=== PATIENT | male | born 1945 | race Caucasian/White ===

== ENCOUNTER 2017-12-18 12:52 | Emergency (ER) | payer MEDICARE, OTHER ==
[2017-12-18 13:09] VITALS: RESP 18
[2017-12-18] MEDS ORDERED: SODIUM CHLORIDE 0.9% 500 ML IV STA (14:32)
[2017-12-18] MEDS ORDERED: SODIUM CHLORIDE 0.9% 1,000 ML IV STA (14:32)
[2017-12-18] MEDS ORDERED: PANTOPRAZOLE 40 MG/10 ML VIAL IVP STA (14:32)
--- NOTE | 2017-12-18 14:34 | ED ---
General Adult HPI - General Chief complaint: GI Bleed Stated complaint: Bleeding Time Seen by Provider: 12/18/17 14:32 Source: patient, RN notes reviewed, old records reviewed Mode of arrival: ambulatory Limitations: no limitations - History of Present Illness Initial comments: This is a 9-year-old male the ER for evaluation today is presenting for evaluation regarding GI bleed. Patient has black tarry stools. No history of significant GI bleed no blood thinners no travel history no sick contacts no lightheadedness no dizziness no weakness no nausea no vomiting no vomiting of blood. - Related Data Home Medications Medication Instructions Recorded Confirmed Aspirin EC [Ecotrin Low Dose] 162 mg PO DAILY 12/18/17 12/18/17 Atenolol [Tenormin] 25 mg PO DAILY 12/18/17 12/18/17 Atorvastatin [Lipitor] 20 mg PO HS 12/18/17 12/18/17 Omeprazole 20 mg PO DAILY 12/18/17 12/18/17 Tamsulosin [Flomax] 0.4 mg PO DAILY 12/18/17 12/18/17 Allergies Allergy/AdvReac Type Severity Reaction Status Date / Time No Known Allergies Allergy Verified 12/18/17 15:13 Review of Systems ROS Statement: Those systems with pertinent positive or pertinent negative responses have been documented in the HPI. ROS Other: All systems not noted in ROS Statement are negative. Past Medical History Past Medical History: GERD/Reflux, Hyperlipidemia, Hypertension History of Any Multi-Drug Resistant Organisms: None Reported Past Surgical History: Heart Catheterization With Stent, Orthopedic Surgery Past Psychological History: No Psychological Hx Reported Smoking Status: Former smoker Past Alcohol Use History: Occasional Past Drug Use History: Marijuana General Exam Limitations: no limitations General appearance: alert, in no apparent distress Head exam: Present: atraumatic, normocephalic, normal inspection Eye exam: Present: normal appearance, PERRL, EOMI. Absent: scleral icterus, conjunctival injection, periorbital swelling ENT exam: Present: normal exam, mucous membranes moist Neck exam: Present: normal inspection. Absent: tenderness, meningismus, lymphadenopathy Respiratory exam: Present: normal lung sounds bilaterally. Absent: respiratory distress, wheezes, rales, rhonchi, stridor Cardiovascular Exam: Present: regular rate, normal rhythm, normal heart sounds. Absent: systolic murmur, diastolic murmur, rubs, gallop, clicks GI/Abdominal exam: Present: soft, normal bowel sounds. Absent: distended, tenderness, guarding, rebound, rigid Extremities exam: Present: normal inspection, full ROM, normal capillary refill. Absent: tenderness, pedal edema, joint swelling, calf tenderness Back exam: Present: normal inspection Neurological exam: Present: alert, oriented X3, CN II-XII intact Psychiatric exam: Present: normal affect, normal mood Skin exam: Present: warm, dry, intact, normal color. Absent: rash Course Vital Signs 12/18/17 13:06 Temperature 98.3 F Pulse Rate 96 Respiratory 18 Rate Blood Pressure 111/83 O2 Sat by Pulse 98 Oximetry - Reevaluation(s) Reevaluation #1: 12/18/17 15:20 Patient admits recent lab values done with normal hemoglobin being found. Patient has history of multiple colonoscopies Medical Decision Making - Medical Decision Making 72 male the ER for evaluation of black tarry stools multiple black tarry stools earlier today. Patient has no bowel pain no prior strokes currently. Patient continue follow-up as an outpatient. Feeling fine no lightheadedness dizziness no weakness, blood pressure and pulse are normal - Lab Data Result diagrams: 12/18/17 14:55 Lab Results 12/18/17 12/18/17 Range/Units 14:55 14:55 WBC 9.1 (3.8-10.6) k/uL RBC 4.36 (4.30-5.90) m/uL Hgb 14.2 (13.0-17.5) gm/dL Hct 41.3 (39.0-53.0) % MCV 94.8 (80.0-100.0) fL MCH 32.6 (25.0-35.0) pg MCHC 34.4 (31.0-37.0) g/dL RDW 12.6 (11.5-15.5) % Plt Count 320 (150-450) k/uL Neutrophils % 67 % Lymphocytes % 20 % Monocytes % 10 % Eosinophils % 1 % Basophils % 1 % Neutrophils # 6.0 (1.3-7.7) k/uL Lymphocytes # 1.8 (1.0-4.8) k/uL Monocytes # 0.9 (0-1.0) k/uL Eosinophils # 0.1 (0-0.7) k/uL Basophils # 0.1 (0-0.2) k/uL Stool Occult Blood Negative (Negative) Disposition Clinical Impression: Gastrointestinal hemorrhage, Melena Disposition: HOME SELF-CARE Condition: Good Instructions: Gastrointestinal Bleeding (ED) Is patient prescribed a controlled substance at d/c from ED?: No Referrals: Lilo Hu DO [Primary Care Provider] - 1-2 days
[2017-12-18 15:17] LABS: Basophils # (A) 0.1 k/uL (0-0.2); Basophils % (A) 1 %; Eosinophils # (A) 0.1 k/uL (0-0.7); Eosinophils % (A) 1 %; HCT 41.3 % (39.0-53.0); HGB 14.2 gm/dL (13.0-17.5); Lymphocytes # (A) 1.8 k/uL (1.0-4.8); Lymphocytes % (A) 20 %; MCH 32.6 pg (25.0-35.0); MCHC 34.4 g/dL (31.0-37.0); MCV 94.8 fL (80.0-100.0); Mean Platelet Volume 6.2; Monocytes # (A) 0.9 k/uL (0-1.0); Monocytes % (A) 10 %; Neutrophils % (A) 67 %; Platelet Count 320 k/uL (150-450); RBC 4.36 m/uL (4.30-5.90); RDW 12.6 % (11.5-15.5); WBC 9.1 k/uL (3.8-10.6)
[2017-12-18 15:33] LABS: Calcium 9.3 mg/dL (8.4-10.2); Magnesium 1.5 mg/dL (1.6-2.3); Potassium 3.7 mmol/L (3.5-5.1); Total Bilirubin 0.6 mg/dL (0.2-1.3); Total Protein 6.7 g/dL (6.3-8.2)
[2017-12-18 15:35] LABS: INR 1.2 (<1.2); Partial Thromboplastin Time 23.5 sec (22.0-30.0); Prothrombin Time 11.5 sec (9.0-12.0)
[2017-12-18 15:38] LABS: Creatine Kinase 55 U/L (55-170)
[2017-12-18 15:49] LABS: Creatine Kinase MB 0.5 ng/mL (0.0-2.4); Troponin I <0.012 ng/mL (0.000-0.034)
[2017-12-18 15:50] VITALS: BP 119/72; PULSE 82; TEMP 98
== END 2017-12-18 15:54 | disposition home or self-care (01) ==
LOC: EC 12:52
DX: K92.1 Melena (principal); E78.5 Hyperlipidemia, unspecified; I10 Essential (primary) hypertension; K21.9 Gastro-esophageal reflux disease without esophagitis; Z87.891 Personal history of nicotine dependence; Z79.82 Long term (current) use of aspirin; Z79.899 Other long term (current) drug therapy
CPT/HCPCS: 36415; 86900; 86901; 80053; 82550; 82553; 83735; 84484; 85025; 85610; 85730; 86850; 82272; 99285; 96374; C9113

== ENCOUNTER 2018-01-04 09:45 | Day surgery (SDC) | payer MEDICARE, OTHER ==
[2018-01-02 16:08] VITALS: BMI 26.6
[~2018-01-04 09:45] MED LIST: LACTATED RINGERS 1,000 ML IV SCH
[2018-01-04 10:44] VITALS: RESP 16; TEMP 97.6
[2018-01-04] MEDS ORDERED: LIDOCAINE 1% 20 ML VIAL (10MG/ML) FOR IV START INTRADERMA ONE (10:52)
[2018-01-04] MEDS ORDERED: PROPOFOL 10 MG/ML 20 ML VIAL IV ONE (11:33)
--- NOTE | 2018-01-04 11:36 | P.GSHP ---
History of Present Illness H&P Date: 01/04/18 Chief Complaint: GI bleed, GERD This is a 72-year-old male referred from Dr. Lilo garcia. Patient rents today for EGD colonoscopy. He's had issues with GI bleeding GERD. Past Medical History Past Medical History: GERD/Reflux, Hearing Disorder / Deafness, Hyperlipidemia, Hypertension, Osteoarthritis (OA) Additional Past Medical History / Comment(s): Hard of hearing. Recent rectal bleeding, black stools, white stools. History of Any Multi-Drug Resistant Organisms: None Reported Past Surgical History: Heart Catheterization With Stent, Orthopedic Surgery Past Anesthesia/Blood Transfusion Reactions: No Reported Reaction Date of Last Stent Placement:: 2007 Past Psychological History: No Psychological Hx Reported Smoking Status: Former smoker Past Alcohol Use History: Occasional Additional Past Alcohol Use History / Comment(s): Quit smoking 15 yrs ago, smoked 40-45yrs, 1 PPD. Past Drug Use History: Marijuana Additional Drug Use History / Comment(s): Uses marajuana on the weekends. - Past Family History Mother Family Medical History: No Reported History Medications and Allergies Home Medications Medication Instructions Recorded Confirmed Type Aspirin EC [Ecotrin Low Dose] 162 mg PO DAILY 12/18/17 01/02/18 History Atenolol [Tenormin] 25 mg PO QAM 12/18/17 01/04/18 History Atorvastatin [Lipitor] 20 mg PO Q48H 12/18/17 01/04/18 History Omeprazole 20 mg PO DAILY 12/18/17 01/04/18 History Tamsulosin [Flomax] 0.4 mg PO DAILY 12/18/17 01/04/18 History Allergies Allergy/AdvReac Type Severity Reaction Status Date / Time No Known Allergies Allergy Verified 01/04/18 10:40 Surgical - Exam Vital Signs Temp Pulse Resp BP Pulse Ox 97.6 F 80 16 139/91 94 L 01/04/18 10:42 01/04/18 10:42 01/04/18 10:42 01/04/18 10:42 01/04/18 10:42 - General well developed, no distress - Eyes PERRL - ENT normal pinna - Neck no masses - Respiratory normal expansion - Cardiovascular Rhythm: regular - Abdomen Abdomen: soft, non tender Assessment and Plan Assessment: GERD, GI bleed. We'll perform EGD and colonoscopy.
[2018-01-04 12:56] VITALS: BP 128/78; PULSE 58
--- NOTE | 2018-01-04 14:56 | P.OP ---
Date of Procedure: 01/04/18 Preoperative Diagnosis: GERD GI bleed Postoperative Diagnosis: Antral gastritis No evidence of hiatal hernia Esophageal biopsy pathology pending Diverticulosis Hemorrhoids Procedure(s) Performed: EGD Colonoscopy Anesthesia: MAC Surgeon: Christopher Estrada Pathology: other (Antrum, esophagus) Condition: stable Disposition: PACU Description of Procedure: The patient's placed on the endoscopy table in the lateral position. He received IV sedation. Digital rectal exam was performed, this revealed international hemorrhoids. Flexible colonoscope was then placed patient anus and passed throughout the entire colon. The ileocecal valve visualized. The cecum, ascending and transverse colon appeared normal. In the descending; there is mild diverticulosis. The scope was then brought back the rectum and this appeared normal. Scope was withdrawn for patient. Next the gastroscope placed oropharynx and passed in the esophagus and stomach. Scope was then placed through the pylorus. The first and second portion of the duodenum appeared normal. Scope was then brought back the antrum this appeared mildly inflamed. A biopsies performed. Scope was then retroflexed and the remainder some appeared normal. There was no significant hiatal hernia. The distal esophagus was minimal inflamed a biopsies performed. The proximal esophagus appeared normal. Scope was withdrawn for patient.
--- NOTE | 2018-01-09 05:21 | CDI ---
Date: 01/09/18 CDS/Director Counseling Bureau Name: Deborah Martinez Phone: If any questions, call Cynthia Walter Life Specialist at [phone] Patient Name: Jr Christianson Admit Date: 01/04/18 Discharge Date: 01/04/18 ATTENTION: The [facility] Coding Staff appreciate your assistance in clarifying documentation. Please respond to the clarification below the line at the bottom and electronically sign. The [facility] Coding staff will review the response and follow-up if needed. Please note: Queries are made part of the Legal Health Record. If you have any questions, please contact the Life Specialist. Dear Dr. Estrada, Please provide clarification regarding procedure(s) performed. Please clarify if a recal biopsy was performed or a polyp was removed and how it was removed. Operative report states that the rectum was normal and there is no other mention of a rectal polyp or biopsy of rectum. The pathology report has a diagnosis of hyperplastic polyp of the rectum. Also, need clarification for GI Bleed. Please clarify if the GI bleed was caused by any of the findings for this colonoscopy. Thank you for your kind consideration. Operative note addendum Cause of GI bleed could not be determined on colonoscopy MTDD
== END 2018-01-04 13:16 | disposition home or self-care (01) ==
LOC: ORWHC2ENDO 09:45
PROVIDERS: ATTEND Surgery
DX: K92.2 Gastrointestinal hemorrhage, unspecified (principal); K21.0 Gastro-esophageal reflux disease with esophagitis; K62.1 Rectal polyp; K29.60 Other gastritis without bleeding; K57.30 Diverticulosis of large intestine without perforation or abscess without bleeding; K64.8 Other hemorrhoids; I25.10 Atherosclerotic heart disease of native coronary artery without angina pectoris; I10 Essential (primary) hypertension; E78.5 Hyperlipidemia, unspecified; M19.90 Unspecified osteoarthritis, unspecified site; Z87.891 Personal history of nicotine dependence; Z79.82 Long term (current) use of aspirin; Z79.899 Other long term (current) drug therapy; Z95.5 Presence of coronary angioplasty implant and graft
CPT/HCPCS: 88305; 45380; 43239; J2704

== ENCOUNTER 2018-02-15 12:06 | Emergency (ER) | payer MEDICARE ==
[2018-02-15 12:12] VITALS: RESP 18; TEMP 97.9
[2018-02-15] MEDS ORDERED: SODIUM CHLORIDE 0.9% 1,000 ML IV STA (12:29)
--- NOTE | 2018-02-15 12:47 | ED ---
Neuro HPI - General Chief Complaint: Neuro Symptoms/Deficit Stated Complaint: Numbness in Hands, Confused Time Seen by Provider: 02/15/18 12:26 Source: patient, RN notes reviewed, old records reviewed Mode of arrival: wheelchair Limitations: no limitations - History of Present Illness Is the patient presenting with stroke symptoms?: Yes Last Known Well Date: 02/15/18 Last Known Well Time: 11:00 -: hour(s) (2) Initial Comments: This is a 72-year-old male the ER with known history of heart disease CAD stent coming in with right arm weakness numbness tingling and right hand weakness. This occurred after his normal walk this morning and while he was mowing the lawn. Patient was going to the emergency room. Upon arrival to emergency room all symptoms have resolved. Patient does take a baby aspirin every day Location: right arm History of same: Yes (Numbness and tingling right arm with complicating history of carpal tunnel) Place: home Severity: mild Quality: weak (Right hand) Improves With: time On Anticoagulants: Yes Context: gradual onset Associated Symptoms: denies other symptoms Treatments Prior to Arrival: Aspirin - Related Data Home Medications: Home Medications Medication Instructions Recorded Confirmed Aspirin EC [Ecotrin Low Dose] 162 mg PO DAILY 12/18/17 02/15/18 Atenolol [Tenormin] 25 mg PO QAM 12/18/17 02/15/18 Atorvastatin [Lipitor] 20 mg PO MOWEFR 12/18/17 02/15/18 Omeprazole 20 mg PO DAILY 12/18/17 02/15/18 Tamsulosin [Flomax] 0.4 mg PO DAILY 12/18/17 02/15/18 Allergies/Adverse Reactions: Allergies Allergy/AdvReac Type Severity Reaction Status Date / Time No Known Allergies Allergy Verified 02/15/18 12:36 Review of Systems ROS Statement: Those systems with pertinent positive or pertinent negative responses have been documented in the HPI. ROS Other: All systems not noted in ROS Statement are negative. General Exam - General Exam Comments Initial Comments: NIH of 0, no neurological deficits found Limitations: no limitations General appearance: alert, in no apparent distress Head exam: Present: atraumatic, normocephalic, normal inspection Eye exam: Present: normal appearance, PERRL, EOMI. Absent: scleral icterus, conjunctival injection, periorbital swelling ENT exam: Present: normal exam, mucous membranes moist Neck exam: Present: normal inspection. Absent: tenderness, meningismus, lymphadenopathy Respiratory exam: Present: normal lung sounds bilaterally. Absent: respiratory distress, wheezes, rales, rhonchi, stridor Cardiovascular Exam: Present: regular rate, normal rhythm, normal heart sounds. Absent: systolic murmur, diastolic murmur, rubs, gallop, clicks GI/Abdominal exam: Present: soft, normal bowel sounds. Absent: distended, tenderness, guarding, rebound, rigid Extremities exam: Present: normal inspection, full ROM, normal capillary refill. Absent: tenderness, pedal edema, joint swelling, calf tenderness Back exam: Present: normal inspection Neurological exam: Present: alert, oriented X3, CN II-XII intact Psychiatric exam: Present: normal affect, normal mood Skin exam: Present: warm, dry, intact, normal color. Absent: rash Stroke MDM - Lab Data Result diagrams: 02/15/18 12:30 02/15/18 12:30 Lab Results 02/15/18 02/15/18 02/15/18 Range/Units 12:23 12:30 12:30 WBC 7.2 (3.8-10.6) k/uL RBC 4.33 (4.30-5.90) m/uL Hgb 14.0 (13.0-17.5) gm/dL Hct 41.4 (39.0-53.0) % MCV 95.8 (80.0-100.0) fL MCH 32.4 (25.0-35.0) pg MCHC 33.8 (31.0-37.0) g/dL RDW 12.5 (11.5-15.5) % Plt Count 259 (150-450) k/uL Neutrophils % 65 % Lymphocytes % 24 % Monocytes % 7 % Eosinophils % 2 % Basophils % 1 % Neutrophils # 4.6 (1.3-7.7) k/uL Lymphocytes # 1.7 (1.0-4.8) k/uL Monocytes # 0.5 (0-1.0) k/uL Eosinophils # 0.2 (0-0.7) k/uL Basophils # 0.1 (0-0.2) k/uL PT (9.0-12.0) sec INR (<1.2) APTT (22.0-30.0) sec Sodium (137-145) mmol/L Potassium (3.5-5.1) mmol/L Chloride (98-107) mmol/L Carbon Dioxide (22-30) mmol/L Anion Gap mmol/L BUN (9-20) mg/dL Creatinine (0.66-1.25) mg/dL Est GFR (CKD-EPI)AfAm (>60 ml/min/1.73 sqM) Est GFR (CKD-EPI)NonAf (>60 ml/min/1.73 sqM) Glucose (74-99) mg/dL POC Glucose (mg/dL) 107 H (75-99) mg/dL POC Glu Manufacturing Support Engineer ID Arun Stoner Calcium (8.4-10.2) mg/dL Total Bilirubin (0.2-1.3) mg/dL AST (17-59) U/L ALT (21-72) U/L Alkaline Phosphatase (38-126) U/L Total Creatine Kinase 65 (55-170) U/L CK-MB (CK-2) 0.7 (0.0-2.4) ng/mL CK-MB (CK-2) Rel Index 1.1 Troponin I <0.012 (0.000-0.034) ng/mL Total Protein (6.3-8.2) g/dL Albumin (3.5-5.0) g/dL 02/15/18 02/15/18 Range/Units 12:30 12:30 WBC (3.8-10.6) k/uL RBC (4.30-5.90) m/uL Hgb (13.0-17.5) gm/dL Hct (39.0-53.0) % MCV (80.0-100.0) fL MCH (25.0-35.0) pg MCHC (31.0-37.0) g/dL RDW (11.5-15.5) % Plt Count (150-450) k/uL Neutrophils % % Lymphocytes % % Monocytes % % Eosinophils % % Basophils % % Neutrophils # (1.3-7.7) k/uL Lymphocytes # (1.0-4.8) k/uL Monocytes # (0-1.0) k/uL Eosinophils # (0-0.7) k/uL Basophils # (0-0.2) k/uL PT 11.5 (9.0-12.0) sec INR 1.2 H (<1.2) APTT 24.1 (22.0-30.0) sec Sodium 139 (137-145) mmol/L Potassium 4.9 (3.5-5.1) mmol/L Chloride 109 H (98-107) mmol/L Carbon Dioxide 23 (22-30) mmol/L Anion Gap 7 mmol/L BUN 12 (9-20) mg/dL Creatinine 0.99 (0.66-1.25) mg/dL Est GFR (CKD-EPI)AfAm 89 (>60 ml/min/1.73 sqM) Est GFR (CKD-EPI)NonAf 77 (>60 ml/min/1.73 sqM) Glucose 110 H (74-99) mg/dL POC Glucose (mg/dL) (75-99) mg/dL POC Glu Manufacturing Support Engineer ID Calcium 9.1 (8.4-10.2) mg/dL Total Bilirubin 0.9 (0.2-1.3) mg/dL AST 34 (17-59) U/L ALT 30 (21-72) U/L Alkaline Phosphatase 56 (38-126) U/L Total Creatine Kinase (55-170) U/L CK-MB (CK-2) (0.0-2.4) ng/mL CK-MB (CK-2) Rel Index Troponin I (0.000-0.034) ng/mL Total Protein 6.7 (6.3-8.2) g/dL Albumin 3.8 (3.5-5.0) g/dL - NIH Stroke Scale 1a. Level of Consciousness: (0) alert 1b. LOC Questions: (0) answers correctly 1c. LOC Commands: (0) performs tasks correctly 2. Best Gaze: (0) normal 3. Visual: (0) no visual loss 4. Facial Palsy: (0) normal symmetrical movement 5a. Motor Arm Left: (0) no drift 5b. Motor Arm Right: (0) no drift 6a. Motor Leg Left: (0) no drift 6b. Motor Leg Right: (0) no drift 7. Limb Ataxia: (0) absent 8. Sensory: (0) normal 9. Best Language: (0) no aphasia 10. Dysarthria: (0) normal 11. Extinction/Inattention: (0) no abnormality - Thrombolytic Inclusion/Exclusion Thrombolytic Contraindications: Rapidly Improving s/s - Medical Decision Making 72 male the ER with right hand weakness numbness and tingling. Symptoms are now resolved. Remain resolved throughout ER stay, patient increased full dose aspirin, will follow-up with neurology - Radiology Data Radiology results: report reviewed (CT brain negative for acute disease, CTA head and neck negative for acute disease), image reviewed - EKG Data -: EKG Interpreted by Me (EKG shows sinus bradycardia rate of 59, MI 176, QRS 02 , QTc 43) EKG shows normal: sinus rhythm Rate: bradycardia Past Medical History Past Medical History: GERD/Reflux, Hearing Disorder / Deafness, Hyperlipidemia, Hypertension, Osteoarthritis (OA) Additional Past Medical History / Comment(s): Hard of hearing. Recent rectal bleeding, black stools, white stools. History of Any Multi-Drug Resistant Organisms: None Reported Past Surgical History: Heart Catheterization With Stent, Orthopedic Surgery Past Anesthesia/Blood Transfusion Reactions: No Reported Reaction Date of Last Stent Placement:: 2007 Past Psychological History: No Psychological Hx Reported Smoking Status: Former smoker Past Alcohol Use History: Occasional Past Drug Use History: Marijuana - Past Family History Mother Family Medical History: No Reported History Course Vital Signs 02/15/18 02/15/18 02/15/18 12:09 12:30 12:40 Temperature 97.9 F Pulse Rate 62 58 L Respiratory 18 Rate Blood Pressure 146/89 160/97 142/89 O2 Sat by Pulse 98 98 Oximetry 02/15/18 13:10 Temperature Pulse Rate 57 L Respiratory Rate Blood Pressure 152/108 O2 Sat by Pulse 98 Oximetry - Reevaluation(s) Reevaluation #1: 02/15/18 13:38 Medical history as reviewed Reevaluation #2: 02/15/18 13:38 Patient with reevaluation, no current neurological deficit. Reevaluation #3: 02/15/18 13:39 With family at length, patient will go to high dose aspirin and be followed up with neurology Disposition Clinical Impression: Transient cerebral ischemia Disposition: HOME SELF-CARE Condition: Good Instructions: Transient Ischemic Attack (ED) Is patient prescribed a controlled substance at d/c from ED?: No Referrals: Lilo Hu DO [Primary Care Provider] - 1-2 days Porfirio Bojorquez MD [STAFF PHYSICIAN] - 1-2 days
[2018-02-15 12:51] LABS: Basophils # (A) 0.1 k/uL (0-0.2); Basophils % (A) 1 %; Eosinophils # (A) 0.2 k/uL (0-0.7); Eosinophils % (A) 2 %; HCT 41.4 % (39.0-53.0); Lymphocytes # (A) 1.7 k/uL (1.0-4.8); Lymphocytes % (A) 24 %; MCH 32.4 pg (25.0-35.0); MCHC 33.8 g/dL (31.0-37.0); MCV 95.8 fL (80.0-100.0); Mean Platelet Volume 6.9; Monocytes # (A) 0.5 k/uL (0-1.0); Monocytes % (A) 7 %; Neutrophils # (A) 4.6 k/uL (1.3-7.7); Neutrophils % (A) 65 %; Platelet Count 259 k/uL (150-450); RBC 4.33 m/uL (4.30-5.90); RDW 12.5 % (11.5-15.5); WBC 7.2 k/uL (3.8-10.6)
[2018-02-15 12:55] LABS: Glucose,Whole Blood 107 mg/dL (75-99)
--- NOTE | 2018-02-15 13:03 | XR ---
EXAMINATION TYPE: XR chest 2V DATE OF EXAM: 02/15/2018 COMPARISON: 10/25/2009 HISTORY: Altered mental status and weakness TECHNIQUE: Frontal and lateral views of the chest are obtained. FINDINGS: There is no focal air space opacity, pleural effusion, or pneumothorax seen. The cardiac silhouette size is enlarged. The osseous structures are intact. Mild degenerative changes of the th oracic spine and acromioclavicular arthropathy are seen. IMPRESSION: No acute cardiopulmonary process.
[2018-02-15 13:08] LABS: Albumin 3.8 g/dL (3.5-5.0); Calcium 9.1 mg/dL (8.4-10.2); Total Bilirubin 0.9 mg/dL (0.2-1.3); Total Protein 6.7 g/dL (6.3-8.2)
--- NOTE | 2018-02-15 13:08 | CT ---
EXAMINATION TYPE: CT brain wo con for TPA DATE OF EXAM: 02/15/2018 COMPARISON: 10/25/2009 HISTORY: Rt hand numbness CT DLP: [address] of the brain was performed. The ventricles, basal cisterns and sulci overlying the cerebral convexities demonstrate mild enlargem ent. There is no evidence for intracranial hemorrhage or sulcal effacement. There is decreased attenuation about the periventricular white matter and deep white matter of both c erebral hemispheres, compatible with chronic small vessel ischemia. Differential diagnosis does inclu de demyelination. No mass effects are seen.No midline shift. Osseous calvarium is intact. If symptoms persist consider MRI. IMPRESSION: 1. Age related atrophic and chronic small vessel ischemic change without acute intracranial process s een at this time.
[2018-02-15 13:13] LABS: Creatine Kinase 65 U/L (55-170)
[2018-02-15 13:20] LABS: INR 1.2 (<1.2); Partial Thromboplastin Time 24.1 sec (22.0-30.0); Potassium 4.9 mmol/L (3.5-5.1); Prothrombin Time 11.5 sec (9.0-12.0)
[2018-02-15 13:26] LABS: Creatine Kinase MB 0.7 ng/mL (0.0-2.4); Troponin I <0.012 ng/mL (0.000-0.034)
--- NOTE | 2018-02-15 13:41 | CT ---
EXAMINATION TYPE: CT angio head neck DATE OF EXAM: 02/15/2018 COMPARISON: None HISTORY: Rt hand numbness CT DLP: 436.2 mGycm CONTRAST: Performed with IV Contrast, patient injected with 65 mL of Isovue 370. Combination Contrast CTA cervical carotids and [place] CTA cervical carotids with 3-D recons truction Contrast CTA of the cervical carotids was performed 3-D reconstruction imaging obtained at a separate workstation. Right carotid system: Mild plaque is seen of the right common carotid artery. There is mild plaque a lso noted at the carotid bulb and proximal ICA. No significant diameter reduction. ECA is patent. Right vertebral artery appears unremarkable. Left carotid system: Mild plaque is seen of the left common carotid artery. There is mild plaque als o noted at the carotid bulb and proximal ICA. No significant diameter reduction. ECA is patent. Lef t vertebral artery appears unremarkable. IMPRESSION: 1. No significant diameter reduction to account for the patient's symptoms. CTA [place] with 3-D reconstruction Contrast CTA of the [place] was performed 3-D reconstruction imaging obtained at a separate workstation. Vertebrobasilar system as well as intracranial portions of the internal carotid arteries and their ma [place] tributaries are patent. I do not see evidence for sizable aneurysm or vascular malformation. Pl ease note MRI provides greater sensitivity and specificity. Visualized brain appears grossly unremar kable. IMPRESSION: 1. No siginificant abnormality.
[2018-02-15 14:26] VITALS: BP 147/90; PULSE 54
== END 2018-02-15 14:52 | disposition home or self-care (01) ==
LOC: EC 12:06
DX: G45.9 Transient cerebral ischemic attack, unspecified (principal); R29.700 NIHSS score 0; R00.1 Bradycardia, unspecified; E78.5 Hyperlipidemia, unspecified; I10 Essential (primary) hypertension; I25.10 Atherosclerotic heart disease of native coronary artery without angina pectoris; K21.9 Gastro-esophageal reflux disease without esophagitis; H91.90 Unspecified hearing loss, unspecified ear; M19.90 Unspecified osteoarthritis, unspecified site; Z87.891 Personal history of nicotine dependence; Z79.82 Long term (current) use of aspirin; Z79.899 Other long term (current) drug therapy; Z95.5 Presence of coronary angioplasty implant and graft
CPT/HCPCS: 36415; 93005; 80053; 82550; 82553; 84484; 85025; 85610; 85730; 71046; 70496; 70450; 70498; 99285; 96360; 96361; Q9967

== ENCOUNTER → 2018-02-28 | Outpatient (CLI) | payer MEDICARE | LOC: RADECHMAIN 11:07 | PROVIDERS: ATTEND Nurse Practitioner Family | DX: G45.9 Transient cerebral ischemic attack, unspecified (principal) | CPT/HCPCS: 93270; 93271 ==

== ENCOUNTER 2018-03-15 21:10 | Inpatient (IN) | payer MEDICARE ==
[2018-03-15] MEDS ORDERED: SODIUM CHLORIDE 0.9% 1,000 ML IV STA (21:15)
[2018-03-15] MEDS ORDERED: SODIUM CHLORIDE 0.9% 500 ML 500 ML IV STA (21:15)
[2018-03-15 21:23] LABS: Glucose,Whole Blood 134 mg/dL (75-99)
--- NOTE | 2018-03-15 21:25 | ED ---
Overdose HPI - General Chief Complaint: Overdose Stated Complaint: Unresponsive Time Seen by Provider: 03/15/18 21:15 Source: patient, EMS, RN notes reviewed, old records reviewed Mode of arrival: EMS Limitations: no limitations - History of Present Illness Initial Comments: This is a 72-year-old male to the ER for evaluation, today he presents for evaluation regards to altered mental status. Family called EMS for patient to be unresponsive. He has no history of drinking at night. But he family denies him taking any other medications or intentional overdose. Family states he does have history of recent TIA with similar symptoms, but he does have history of taking too much of his medication as well. Patient himself is currently unresponsive he did mildly responsive to Narcan per EMS, history obtained from patient's chart EMS and family at bedside MD Complaint: intentional overdose, accidental overdose -: unknown Intent: unknown How Overdose Was Discovered: called 911 (Family called) Context: Intentional Overdose: drug/ETOH problems Context: Accidental Overdose: other (Unknown) Treatments Prior to Arrival: narcan, IV fluids - Related Data Home Medications Medication Instructions Recorded Confirmed Aspirin EC [Ecotrin Low Dose] 162 mg PO DAILY 12/18/17 02/15/18 Atenolol [Tenormin] 25 mg PO QAM 12/18/17 02/15/18 Atorvastatin [Lipitor] 20 mg PO MOWEFR 12/18/17 02/15/18 Omeprazole 20 mg PO DAILY 12/18/17 02/15/18 Tamsulosin [Flomax] 0.4 mg PO DAILY 12/18/17 02/15/18 Allergies Allergy/AdvReac Type Severity Reaction Status Date / Time No Known Allergies Allergy Verified 02/15/18 12:36 Review of Systems ROS Statement: Those systems with pertinent positive or pertinent negative responses have been documented in the HPI. ROS Other: All systems not noted in ROS Statement are negative. Past Medical History Past Medical History: GERD/Reflux, Hearing Disorder / Deafness, Hyperlipidemia, Hypertension, Osteoarthritis (OA) Additional Past Medical History / Comment(s): Hard of hearing. Recent rectal bleeding, black stools, white stools. History of Any Multi-Drug Resistant Organisms: None Reported Past Surgical History: Heart Catheterization With Stent, Orthopedic Surgery Past Anesthesia/Blood Transfusion Reactions: No Reported Reaction Date of Last Stent Placement:: 2007 Past Psychological History: No Psychological Hx Reported Smoking Status: Former smoker Past Alcohol Use History: Occasional Past Drug Use History: Marijuana - Past Family History Mother Family Medical History: No Reported History General Exam Limitations: altered mental status General appearance: alert, in no apparent distress Head exam: Present: atraumatic, normocephalic, normal inspection Eye exam: Present: normal appearance, PERRL, EOMI. Absent: scleral icterus, conjunctival injection, periorbital swelling ENT exam: Present: normal exam, mucous membranes moist Neck exam: Present: normal inspection. Absent: tenderness, meningismus, lymphadenopathy Respiratory exam: Present: normal lung sounds bilaterally. Absent: respiratory distress, wheezes, rales, rhonchi, stridor Cardiovascular Exam: Present: regular rate, normal rhythm, normal heart sounds. Absent: systolic murmur, diastolic murmur, rubs, gallop, clicks GI/Abdominal exam: Present: soft, normal bowel sounds. Absent: distended, tenderness, guarding, rebound, rigid Extremities exam: Present: normal inspection, full ROM, normal capillary refill. Absent: tenderness, pedal edema, joint swelling, calf tenderness Back exam: Present: normal inspection Neurological exam: Present: alert, oriented X3, CN II-XII intact Psychiatric exam: Present: normal affect, normal mood Skin exam: Present: warm, dry, intact, normal color. Absent: rash Course Vital Signs 03/15/18 21:15 Pulse Rate 70 Respiratory 19 Rate Blood Pressure 117/79 O2 Sat by Pulse 98 Oximetry - Reevaluation(s) Reevaluation #1: 03/15/18 22:41 Medical records reviewed Reevaluation #2: 03/15/18 22:41 Patient has mild response to Narcan, response to time, coming around but still having difficulty with answering questions appropriately Medical Decision Making - Medical Decision Making 72 male the ER for evaluation presents today for evaluation of unresponsiveness , patient is coming around mildly, now with full improvement back to baseline, no family at bedside to tell if there is completely return to baseline otherwise patient has. Patient's positive alcohol ingestion, CT is negative we' ll admit for further neurological assessment - Lab Data Result diagrams: 03/15/18 21:37 03/15/18 21:37 Lab Results 03/15/18 03/15/18 03/15/18 Range/Units 21:21 21:37 21:37 WBC 10.6 (3.8-10.6) k/uL RBC 4.55 (4.30-5.90) m/uL Hgb 14.7 (13.0-17.5) gm/dL Hct 43.8 (39.0-53.0) % MCV 96.2 (80.0-100.0) fL MCH 32.3 (25.0-35.0) pg MCHC 33.6 (31.0-37.0) g/dL RDW 12.7 (11.5-15.5) % Plt Count 255 (150-450) k/uL Neutrophils % 65 % Lymphocytes % 25 % Monocytes % 6 % Eosinophils % 1 % Basophils % 1 % Neutrophils # 6.9 (1.3-7.7) k/uL Lymphocytes # 2.7 (1.0-4.8) k/uL Monocytes # 0.7 (0-1.0) k/uL Eosinophils # 0.1 (0-0.7) k/uL Basophils # 0.1 (0-0.2) k/uL PT (9.0-12.0) sec INR (<1.2) APTT (22.0-30.0) sec Sodium (137-145) mmol/L Potassium (3.5-5.1) mmol/L Chloride (98-107) mmol/L Carbon Dioxide (22-30) mmol/L Anion Gap mmol/L BUN (9-20) mg/dL Creatinine (0.66-1.25) mg/dL Est GFR (CKD-EPI)AfAm (>60 ml/min/1.73 sqM) Est GFR (CKD-EPI)NonAf (>60 ml/min/1.73 sqM) Glucose (74-99) mg/dL POC Glucose (mg/dL) 134 H (75-99) mg/dL POC Glu Retail Merchandiser ID Estevan Be Plasma Lactic Acid Michael (0.7-2.0) mmol/L Calcium (8.4-10.2) mg/dL Phosphorus (2.5-4.5) mg/dL Magnesium (1.6-2.3) mg/dL Total Bilirubin (0.2-1.3) mg/dL AST (17-59) U/L ALT (21-72) U/L Alkaline Phosphatase (38-126) U/L Ammonia (<30) umol/L Total Creatine Kinase 56 (55-170) U/L CK-MB (CK-2) 0.8 (0.0-2.4) ng/mL CK-MB (CK-2) Rel Index 1.4 Troponin I 0.016 (0.000-0.034) ng/mL Total Protein (6.3-8.2) g/dL Albumin (3.5-5.0) g/dL Serum Alcohol mg/dL 03/15/18 03/15/18 03/15/18 Range/Units 21:37 21:37 21:37 WBC (3.8-10.6) k/uL RBC (4.30-5.90) m/uL Hgb (13.0-17.5) gm/dL Hct (39.0-53.0) % MCV (80.0-100.0) fL MCH (25.0-35.0) pg MCHC (31.0-37.0) g/dL RDW (11.5-15.5) % Plt Count (150-450) k/uL Neutrophils % % Lymphocytes % % Monocytes % % Eosinophils % % Basophils % % Neutrophils # (1.3-7.7) k/uL Lymphocytes # (1.0-4.8) k/uL Monocytes # (0-1.0) k/uL Eosinophils # (0-0.7) k/uL Basophils # (0-0.2) k/uL PT 16.2 H (9.0-12.0) sec INR 1.8 H (<1.2) APTT 22.2 (22.0-30.0) sec Sodium 140 (137-145) mmol/L Potassium 4.7 (3.5-5.1) mmol/L Chloride 108 H (98-107) mmol/L Carbon Dioxide 20 L (22-30) mmol/L Anion Gap 12 mmol/L BUN 17 (9-20) mg/dL Creatinine 1.40 H (0.66-1.25) mg/dL Est GFR (CKD-EPI)AfAm 59 (>60 ml/min/1.73 sqM) Est GFR (CKD-EPI)NonAf 51 (>60 ml/min/1.73 sqM) Glucose 151 H (74-99) mg/dL POC Glucose (mg/dL) (75-99) mg/dL POC Glu Retail Merchandiser ID Plasma Lactic Acid Michael 2.9 H* (0.7-2.0) mmol/L Calcium 9.3 (8.4-10.2) mg/dL Phosphorus 5.0 H (2.5-4.5) mg/dL Magnesium 2.3 (1.6-2.3) mg/dL Total Bilirubin 0.5 (0.2-1.3) mg/dL AST 27 (17-59) U/L ALT 30 (21-72) U/L Alkaline Phosphatase 64 (38-126) U/L Ammonia <9 (<30) umol/L Total Creatine Kinase (55-170) U/L CK-MB (CK-2) (0.0-2.4) ng/mL CK-MB (CK-2) Rel Index Troponin I (0.000-0.034) ng/mL Total Protein 6.9 (6.3-8.2) g/dL Albumin 4.0 (3.5-5.0) g/dL Serum Alcohol 117 mg/dL - Radiology Data Radiology results: report reviewed (CT brain is negative for acute diseae, chest x-ray negative fora cute disease), image reviewed Disposition Clinical Impression: Accidental drug ingestion, Poisoning by opiate or related narcotic, Transient cerebral ischemia, Alcohol ingestion Disposition: ADMITTED IP TO THIS [facility] Condition: Fair Is patient prescribed a controlled substance at d/c from ED?: No Referrals: Lilo Hu DO [Primary Care Provider] - 1-2 days
[2018-03-15] MEDS ORDERED: LORazepam 2 MG/ML INJ IV STA (21:40)
[2018-03-15 21:52] LABS: Basophils # (A) 0.1 k/uL (0-0.2); Basophils % (A) 1 %; Eosinophils # (A) 0.1 k/uL (0-0.7); Eosinophils % (A) 1 %; HCT 43.8 % (39.0-53.0); HGB 14.7 gm/dL (13.0-17.5); Lymphocytes # (A) 2.7 k/uL (1.0-4.8); Lymphocytes % (A) 25 %; MCH 32.3 pg (25.0-35.0); MCHC 33.6 g/dL (31.0-37.0); MCV 96.2 fL (80.0-100.0); Mean Platelet Volume 6.8; Monocytes # (A) 0.7 k/uL (0-1.0); Monocytes % (A) 6 %; Neutrophils # (A) 6.9 k/uL (1.3-7.7); Neutrophils % (A) 65 %; Platelet Count 255 k/uL (150-450); RBC 4.55 m/uL (4.30-5.90); RDW 12.7 % (11.5-15.5); WBC 10.6 k/uL (3.8-10.6)
[2018-03-15 22:00] LABS: INR 1.8 (<1.2); Partial Thromboplastin Time 22.2 sec (22.0-30.0); Prothrombin Time 16.2 sec (9.0-12.0)
[2018-03-15 22:20] LABS: ALT 30 U/L (21-72); AST 27 U/L (17-59); Alkaline Phosphatase 64 U/L (38-126); Anion Gap 12 mmol/L; Blood Urea Nitrogen 17 mg/dL (9-20); Calcium 9.3 mg/dL (8.4-10.2); Carbon Dioxide 20 mmol/L (22-30); Chloride 108 mmol/L (98-107); Glucose 151 mg/dL (74-99); Magnesium 2.3 mg/dL (1.6-2.3); Potassium 4.7 mmol/L (3.5-5.1); Sodium 140 mmol/L (137-145); Total Bilirubin 0.5 mg/dL (0.2-1.3); Total Protein 6.9 g/dL (6.3-8.2)
[2018-03-15 22:21] LABS: Ammonia <9 umol/L (<30)
--- NOTE | 2018-03-15 22:27 | CT ---
EXAMINATION TYPE: CT brain wo con DATE OF EXAM: 03/15/2018 COMPARISON: 02/15/2018 HISTORY: Altered mental status. Found unresponsive. CT DLP: 1526.4 mGycm Automated exposure control for dose reduction was used. FINDINGS: Ventricles of normal size. There is hypodensity in the periventricular white matter. There is no mas s effect nor midline shift. There is no sign of intracranial hemorrhage. The calvarium is intact. IMPRESSION: NO ACUTE INTRACRANIAL ABNORMALITY. CEREBRAL ATROPHY AND CHRONIC SMALL VESSEL ISCHEMIA. NO CHANGE COMP ARED TO OLD EXAM.
[2018-03-15 22:30] LABS: Alcohol 117 mg/dL
[2018-03-15 22:31] LABS: Creatine Kinase MB 0.8 ng/mL (0.0-2.4); Lactic Acid, Venous 2.9 mmol/L (0.7-2.0); Troponin I 0.016 ng/mL (0.000-0.034)
[2018-03-15] MEDS ORDERED: ASPIRIN 325 MG TAB PO STA (22:42)
[2018-03-15] MEDS ORDERED: THIAMINE 100 MG/ML 2 ML VIAL IM STA (22:42)
[2018-03-15] MEDS ORDERED: LORazepam 2 MG/ML INJ IV PRN ×3 (22:42)
[2018-03-15 22:47] LABS: Acetaminophen <10.0 ug/mL; Salicylate <1.0 mg/dL
--- NOTE | 2018-03-15 22:49 | XR ---
EXAMINATION TYPE: XR chest 1V portable DATE OF EXAM: 03/15/2018 COMPARISON: 02/15/2018 HISTORY: Right-sided jaw pain TECHNIQUE: Single frontal view of the chest is obtained. FINDINGS: There is no heart failure nor confluent pneumonic infiltrate. Costophrenic angles are prachi r. There are chest leads. IMPRESSION: No active cardiopulmonary disease. Normal heart.
[2018-03-15 22:58] LABS: Appearance,Urine Clear (Clear); Bilirubin,Urine Negative (Negative); Blood,Urine Negative (Negative); Color,Urine Yellow; Glucose,Urine (UA) Negative (Negative); Granular Casts,Urine 10 /lpf (0); Hyaline Casts,Urine 21 /lpf (0-2); Ketones,Urine Negative (Negative); Leukocyte Esterase,Urine Negative (Negative); Mucus,Urine Rare /hpf; Nitrite,Urine Negative (Negative); PH, Urine 5.5 (5.0-8.0); Protein,Urine 1+ (Negative); RBC,Urine <1 /hpf (0-5); Specific Gravity,Urine 1.008 (1.001-1.035); Urobilinogen,Urine <2.0 mg/dL (<2.0); WBC,Urine 2 /hpf (0-5)
[2018-03-15 23:21] LABS: Amphetamine Screen,Urine Not Detected (NotDetected); Barbiturate Screen,Urine Not Detected (NotDetected); Benzodiazepines Screen,Urine Not Detected (NotDetected); Cocaine Screen,Urine Not Detected (NotDetected); Methadone Screen, Urine Not Detected (NotDetected); Opiate Screen,Urine Not Detected (NotDetected); Oxycodone Screen, Urine Not Detected (NotDetected); Phencyclidine Screen,Urine Not Detected (NotDetected); Tricyclic Antidepressant,Urine Not Detected (NotDetected); Urn Cannabinoid Scrn Detected (NotDetected)
[2018-03-16 02:48] LABS: Cholesterol 193 mg/dL (<200); HDL Cholesterol 42 mg/dL (40-60); LDL Cholesterol,Calculated 111 mg/dL (0-99); Triglycerides 202 mg/dL (<150)
[2018-03-16 08:07] VITALS: BMI 24.3
[2018-03-16] MEDS: SODIUM CHLORIDE 0.9% 1,000 ML IV SCH ×3 (09:06→16:24)
[2018-03-16] MEDS: ENOXAPARIN 40 MG/0.4 ML SYRINGE SQ SCH (09:09)
--- NOTE | 2018-03-16 13:16 | P.CNNES ---
History of Present Illness Consult date: 03/16/18 Requesting physician: Tracy Navarrete Reason for Consult: Altered mental status History of Present Illness: Patient is a pleasant 72-year-old male who is being evaluated by the neurology service on 03/16/2018 per the request of Dr. Navarrete for altered mental status. Patient states he woke up in the morning and seemed to be fine. He states he cleaned out his garage and then went to his local establishment to have a few beers with his friends. States he came home and doesn't recall anything following. He states his girlfriend found him slumped over the bar in their basement and was unresponsive. She called 911 patient was brought to [facility] for further evaluation. EMS administered Narcan en route with little response. Patient does have history of taking too much medication in the past. Patient does have history of alcohol abuse. Patient does have history of TIA in January 2018 and is on aspirin in the home setting. No obvious lateralizing weakness or seizure-like activity noted on admission. Computed tomography scan of the brain was done on admission which showed no acute intracranial abnormality. CT did show cerebral atrophy and chronic small vessel ischemia. Chest x-ray showed no active cardiopulmonary disease. Vital signs on admission were pulse 70, respiratory rate 19, blood pressure 117/79, and oxygen saturation was 98% on a nonrebreather mask. Labs on admission showed elevated INR of 1.8, chloride 108, carbon dioxide 20, BUN 17, creatinine 1.4. Patient had elevated plasma lactic acid of 2.9. Lipid panel showed elevated triglycerides of 202 and elevated LDL of 111. Urine toxicology showed positive for THC. At the time of my evaluation, patient's resting comfortably in bed and appears to be in no acute distress. Review of Systems REVIEW OF SYSTEMS: Otherwise unremarkable and noncontributory. Past Medical History Past Medical History: GERD/Reflux, Hearing Disorder / Deafness, Hyperlipidemia, Hypertension, Osteoarthritis (OA) Additional Past Medical History / Comment(s): Hard of hearing. Recent rectal bleeding, black stools, white stools. History of Any Multi-Drug Resistant Organisms: None Reported Past Surgical History: Heart Catheterization With Stent, Orthopedic Surgery Past Anesthesia/Blood Transfusion Reactions: No Reported Reaction Date of Last Stent Placement:: 2007 Past Psychological History: No Psychological Hx Reported Smoking Status: Former smoker Past Alcohol Use History: Occasional Additional Past Alcohol Use History / Comment(s): Quit smoking 15 yrs ago, smoked 40-45yrs, 1 PPD. Past Drug Use History: Marijuana Additional Drug Use History / Comment(s): Uses marajuana on the weekends. - Past Family History Mother Family Medical History: No Reported History Medications and Allergies Home Medications Medication Instructions Recorded Confirmed Type Aspirin EC [Ecotrin Low Dose] 162 mg PO DAILY 12/18/17 02/15/18 History Atenolol [Tenormin] 25 mg PO QAM 12/18/17 03/15/18 History Atorvastatin [Lipitor] 20 mg PO MOWEFR 12/18/17 02/15/18 History Omeprazole 20 mg PO DAILY 12/18/17 02/15/18 History Tamsulosin [Flomax] 0.4 mg PO DAILY 12/18/17 02/15/18 History Allergies Allergy/AdvReac Type Severity Reaction Status Date / Time No Known Allergies Allergy Verified 03/15/18 23:10 Physical Examination - Vital Signs Vital Signs: Vital Signs Temp Pulse Pulse Resp BP BP Pulse Ox 03/16/18 07:27 97.7 F 84 15 130/79 95 03/16/18 06:16 98.0 F 88 16 137/81 03/16/18 05:16 96 16 128/80 98 03/16/18 05:00 95 17 128/80 03/16/18 04:56 97.9 F 102 H 16 120/80 96 03/16/18 04:00 82 18 127/87 97 03/16/18 03:00 84 16 125/81 99 03/16/18 01:00 73 16 101/67 95 03/16/18 00:17 75 16 103/63 95 03/16/18 00:00 77 17 137/63 03/15/18 23:30 70 18 106/67 03/15/18 23:07 78 13 128/92 03/15/18 21:15 70 19 117/79 98 Intake and Output 03/15/18 03/16/18 03/16/18 22:59 06:59 14:59 Intake Total 120 Balance 120 Intake: Oral 120 Other: # Voids 0 Weight 87.543 kg 76.7 kg PHYSICAL EXAM: GENERAL APPEARANCE: Patient is a well-developed, male who appears to be in no acute distress. HEENT: Normocephalic, atraumatic, no facial asymmetry is seen. Neck is supple with no masses felt. CARDIOVASCULAR: Regular rate and rhythm. ABDOMEN: Nontender, nondistended. EXTREMITIES: Show no edema or clubbing. NEUROLOGICAL EXAM: Patient is awake, alert, and oriented 3. Speech and language are normal. Strength is full in all 4 extremities. Sensory exam to light touch is normal in all 4 extremities. No facial asymmetry is seen on cranial nerve testing. No tremors or seizure-like activity noted. Results - Laboratory Findings CBC and BMP: 03/15/18 21:37 03/15/18 21:37 Abnormal Lab Findings: Abnormal Labs 03/15/18 03/15/18 03/15/18 21:21 21:37 21:37 PT INR Chloride 108 H Carbon Dioxide 20 L Creatinine 1.40 H Glucose 151 H POC Glucose (mg/dL) 134 H Plasma Lactic Acid Michael 2.9 H* Phosphorus 5.0 H Triglycerides LDL Cholesterol, Calc Urine Protein Hyaline Casts Urine Mucus U Marijuana (THC) Screen 03/15/18 03/15/18 03/15/18 21:37 22:35 22:35 PT 16.2 H INR 1.8 H Chloride Carbon Dioxide Creatinine Glucose POC Glucose (mg/dL) Plasma Lactic Acid Michael Phosphorus Triglycerides LDL Cholesterol, Calc Urine Protein 1+ H Hyaline Casts 21 H Urine Mucus Rare H U Marijuana (THC) Screen Detected H 03/16/18 03/16/18 02:11 02:11 PT INR Chloride Carbon Dioxide Creatinine Glucose POC Glucose (mg/dL) Plasma Lactic Acid Michael 2.7 H* Phosphorus Triglycerides 202 H LDL Cholesterol, Calc 111 H Urine Protein Hyaline Casts Urine Mucus U Marijuana (THC) Screen Assessment and Plan Plan: Impression: 1. Unresponsive episode, possible drug ingestion 2. History of TIA 3. Alcohol ingestion 4. Hyperlipidemia 5. Coagulopathy Recommendation: It does appear patient may have had a drug and alcohol ingestion causing a syncopal episode. No neurological deficits noted on exam. No family at bedside but patient seems appropriate and conversant. It is not clear whether this is fully back to baseline for patient. Patient had recent TIA and was placed on aspirin. I recommend continuing aspirin and statin therapy. Patient does have risk factors for stroke such as age, dyslipidemia, history of TIA and small vessel ischemic disease. I will order an MRI of the brain and an EEG to evaluate possible contributing etiology. Patient had a CT angiogram of the brain and neck approximately one month ago which was negative for any abnormality. CT of the brain this admission was negative for any acute findings. Patient has little memory of yesterday which could be consistent with his alcohol and drug ingestion. Continue neurological checks. I will continue to follow with you. Further recommendations following testing. Thank you for allowing me to participate in the care of your patient. Feel free to call me with any questions or concerns. I performed an examination of the patient and discussed the management with the QUALITY CONSULTANT. I have reviewed the QUALITY CONSULTANT notes and agree with the findings and plan of care.
[2018-03-16] MEDS: THIAMINE 100 MG TAB PO SCH ×2 (13:33→16:22)
--- NOTE | 2018-03-16 15:21 | US ---
EXAMINATION TYPE: US carotid duplex BILAT DATE OF EXAM: 03/16/2018 COMPARISON: 10/25/2009 CLINICAL HISTORY: syncope. EXAM MEASUREMENTS: RIGHT: Peak Systolic Velocity (PSV) cm/sec ----- Right CCA: 70.2 ----- Right ICA: 83.4 ----- Right ECA: 79.0 ICA/CCA ratio: 1.2 RIGHT: End Diastole cm/sec ----- Right CCA: 21.9 ----- Right ICA: 18.6 ----- Right ECA: 14.0 LEFT: Peak Systolic Velocity (PSV) cm/sec ----- Left CCA: 80.2 ----- Left ICA: 80.2 ----- Left ECA: 79.1 ICA/CCA ratio: 1.0 LEFT: End Diastole cm/sec ----- Left CCA: 23.0 ----- Left ICA: 17.5 ----- Left ECA: 15.3 VERTEBRALS (direction of flow): Right Vertebral: Antegrade Left Vertebral: Antegrade Rhythm: Normal Minimal atherosclerotic changes, no elevated velocities, no significant stenosis. IMPRESSION: Mild degree of grayscale atheromatous plaquing with no sonographically evident hemodyn amically significant stenosis within either visualized carotid arterial system. Criteria for Assigning % of Stenosis / Diameter reduction (Estimation based on the indirect measurements of the internal carotid artery velocities (ICA PSV). 1. Normal (no stenosis)=ICA PSV < 125 cm/s: ratio < 2.0: ICA EDV<40 cm/s. 2. Less than 50% stenosis=ICA PSV < 125 cm/s: ratio < 2.0: ICA EDV<40 cm/s. 3. 50 to 69% stenosis=ICA PSV of 125 to 230 cm/s: ration 2.0 ? 4.0: ICA EDV 40-100 cm/s. 4. Greater than 70% stenosis to near occlusion= ICA PSV > 230 cm/s: ratio > 4.0: ICA EDV > 100 cm/s. 5. Near occlusion= ICA PSV velocities may be low or undetectable: variable ratio and ICA EDV. 6. Total occlusion=unable to detect flow.
[2018-03-16 15:22] LABS: Basophils # (A) 0.1 k/uL (0-0.2); Basophils % (A) 1 %; Eosinophils # (A) 0.1 k/uL (0-0.7); Eosinophils % (A) 1 %; HCT 41.4 % (39.0-53.0); HGB 14.1 gm/dL (13.0-17.5); Lymphocytes # (A) 1.7 k/uL (1.0-4.8); Lymphocytes % (A) 15 %; MCH 32.2 pg (25.0-35.0); MCHC 34.1 g/dL (31.0-37.0); MCV 94.6 fL (80.0-100.0); Mean Platelet Volume 6.4; Monocytes # (A) 0.6 k/uL (0-1.0); Monocytes % (A) 6 %; Neutrophils # (A) 8.2 k/uL (1.3-7.7); Neutrophils % (A) 77 %; Platelet Count 215 k/uL (150-450); RBC 4.38 m/uL (4.30-5.90); RDW 12.7 % (11.5-15.5); WBC 10.7 k/uL (3.8-10.6)
[2018-03-16 15:41] LABS: Albumin 3.5 g/dL (3.5-5.0); Calcium 9.2 mg/dL (8.4-10.2); Potassium 4.1 mmol/L (3.5-5.1); Total Bilirubin 0.7 mg/dL (0.2-1.3); Total Protein 6.3 g/dL (6.3-8.2)
[2018-03-16] MEDS: ASPIRIN 325 MG TAB PO SCH (16:25)
--- NOTE | 2018-03-16 16:27 | P.HPIM ---
History of Present Illness H&P Date: 03/16/18 Jr Christianson is a 72-year-old male who was brought in to [facility] emergency room after being found unresponsive, patient states that he went out with some friends and had multiple beers he returned home and went into his basement, his girlfriend found him slumped over the bar in the basement and he was an responsive EMS were called and patient was brought into emergency room, he was evaluated in the emergency room and was admitted to medical floor for further evaluation and treatment. In the emergency room patient had evidence of elevated serum alcohol level at 117 marijuana screen was also positive, lactic acid was elevated at 2.9 INR was also elevated at 1.8 Patient has a known history of stroke and is maintained on aspirin, he also has known history of coronary artery disease and had a stent placed more than 10 years ago. Past Medical History Past Medical History: GERD/Reflux, Hearing Disorder / Deafness, Hyperlipidemia, Hypertension, Osteoarthritis (OA) Additional Past Medical History / Comment(s): Hard of hearing. Recent rectal bleeding, black stools, white stools. History of Any Multi-Drug Resistant Organisms: None Reported Past Surgical History: Heart Catheterization With Stent, Orthopedic Surgery Past Anesthesia/Blood Transfusion Reactions: No Reported Reaction Date of Last Stent Placement:: 2007 Past Psychological History: No Psychological Hx Reported Smoking Status: Former smoker Past Alcohol Use History: Occasional Additional Past Alcohol Use History / Comment(s): Quit smoking 15 yrs ago, smoked 40-45yrs, 1 PPD. Past Drug Use History: Marijuana Additional Drug Use History / Comment(s): Uses marajuana on the weekends. - Past Family History Mother Family Medical History: No Reported History Medications and Allergies Home Medications Medication Instructions Recorded Confirmed Type Aspirin EC [Ecotrin Low Dose] 162 mg PO DAILY 12/18/17 02/15/18 History Atenolol [Tenormin] 25 mg PO QAM 12/18/17 03/15/18 History Atorvastatin [Lipitor] 20 mg PO MOWEFR 12/18/17 02/15/18 History Omeprazole 20 mg PO DAILY 12/18/17 02/15/18 History Tamsulosin [Flomax] 0.4 mg PO DAILY 12/18/17 02/15/18 History Allergies Allergy/AdvReac Type Severity Reaction Status Date / Time No Known Allergies Allergy Verified 03/15/18 23:10 Physical Exam Vitals: Vital Signs Temp Pulse Pulse Resp BP BP Pulse Ox 03/16/18 12:00 85 17 128/83 97 03/16/18 07:27 97.7 F 84 15 130/79 95 03/16/18 06:16 98.0 F 88 16 137/81 03/16/18 05:16 96 16 128/80 98 03/16/18 05:00 95 17 128/80 03/16/18 04:56 97.9 F 102 H 16 120/80 96 03/16/18 04:00 82 18 127/87 97 03/16/18 03:00 84 16 125/81 99 03/16/18 01:00 73 16 101/67 95 03/16/18 00:17 75 16 103/63 95 03/16/18 00:00 77 17 137/63 03/15/18 23:30 70 18 106/67 03/15/18 23:07 78 13 128/92 03/15/18 21:15 70 19 117/79 98 Intake and Output 03/16/18 03/16/18 03/16/18 06:59 14:59 22:59 Intake Total 940 Balance 940 Intake: Intake, IV Titration 700 Amount Sodium Chloride 0.9% 1, 700 000 ml @ 100 mls/hr IV . Q10H JUVE Rx#:[id number] Oral 240 Other: # Voids 1 Weight 76.7 kg In general patient is alert and oriented 3 in no apparent distress HEENT head normocephalic and atraumatic Neck is supple no JVD no goiter no lymphadenopathy Chest exam reveals a few scattered rhonchi no wheezing Cardiac exam reveals regular heart sounds S1 and S2 no gallops no murmurs Abdomen is soft nontender no organomegaly with normal bowel sounds Extremity exam reveals no edema no cyanosis or clubbing Results CBC & Chem 7: 03/16/18 14:53 03/16/18 14:53 Labs: Abnormal Lab Results - Last 24 Hours (Table) 03/15/18 03/15/18 03/15/18 Range/Units 21:21 21:37 21:37 WBC (3.8-10.6) k/uL Neutrophils # (1.3-7.7) k/uL PT (9.0-12.0) sec INR (<1.2) Chloride 108 H (98-107) mmol/L Carbon Dioxide 20 L (22-30) mmol/L Creatinine 1.40 H (0.66-1.25) mg/dL Glucose 151 H (74-99) mg/dL POC Glucose (mg/dL) 134 H (75-99) mg/dL Plasma Lactic Acid Michael 2.9 H* (0.7-2.0) mmol/L Phosphorus 5.0 H (2.5-4.5) mg/dL Triglycerides (<150) mg/dL LDL Cholesterol, Calc (0-99) mg/dL Urine Protein (Negative) Hyaline Casts (0-2) /lpf Urine Mucus (None) /hpf U Marijuana (THC) Screen (NotDetected) 03/15/18 03/15/18 03/15/18 Range/Units 21:37 22:35 22:35 WBC (3.8-10.6) k/uL Neutrophils # (1.3-7.7) k/uL PT 16.2 H (9.0-12.0) sec INR 1.8 H (<1.2) Chloride (98-107) mmol/L Carbon Dioxide (22-30) mmol/L Creatinine (0.66-1.25) mg/dL Glucose (74-99) mg/dL POC Glucose (mg/dL) (75-99) mg/dL Plasma Lactic Acid Michael (0.7-2.0) mmol/L Phosphorus (2.5-4.5) mg/dL Triglycerides (<150) mg/dL LDL Cholesterol, Calc (0-99) mg/dL Urine Protein 1+ H (Negative) Hyaline Casts 21 H (0-2) /lpf Urine Mucus Rare H (None) /hpf U Marijuana (THC) Screen Detected H (NotDetected) 03/16/18 03/16/18 03/16/18 Range/Units 02:11 02:11 14:53 WBC 10.7 H (3.8-10.6) k/uL Neutrophils # 8.2 H (1.3-7.7) k/uL PT (9.0-12.0) sec INR (<1.2) Chloride (98-107) mmol/L Carbon Dioxide (22-30) mmol/L Creatinine (0.66-1.25) mg/dL Glucose (74-99) mg/dL POC Glucose (mg/dL) (75-99) mg/dL Plasma Lactic Acid Michael 2.7 H* (0.7-2.0) mmol/L Phosphorus (2.5-4.5) mg/dL Triglycerides 202 H (<150) mg/dL LDL Cholesterol, Calc 111 H (0-99) mg/dL Urine Protein (Negative) Hyaline Casts (0-2) /lpf Urine Mucus (None) /hpf U Marijuana (THC) Screen (NotDetected) 03/16/18 Range/Units 14:53 WBC (3.8-10.6) k/uL Neutrophils # (1.3-7.7) k/uL PT (9.0-12.0) sec INR (<1.2) Chloride 108 H (98-107) mmol/L Carbon Dioxide (22-30) mmol/L Creatinine (0.66-1.25) mg/dL Glucose 121 H (74-99) mg/dL POC Glucose (mg/dL) (75-99) mg/dL Plasma Lactic Acid Michael (0.7-2.0) mmol/L Phosphorus (2.5-4.5) mg/dL Triglycerides (<150) mg/dL LDL Cholesterol, Calc (0-99) mg/dL Urine Protein (Negative) Hyaline Casts (0-2) /lpf Urine Mucus (None) /hpf U Marijuana (THC) Screen (NotDetected) Microbiology - Last 24 Hours (Table) 03/15/18 22:35 Urine Culture - Preliminary Urine,Catheterized Thrombosis Risk Factor Assmnt - Choose All That Apply Any of the Below Risk Factors Present?: Yes Each Risk Factor Represents 2 Points: Age 61-74 years Thrombosis Risk Factor Assessment Total Risk Factor Score: 2 Thrombosis Risk Factor Assessment Level: Low Risk Assessment and Plan Plan: #1 syncope #2 elevated lactic acid #3 alcohol intoxication #4 THC positive #5 underlying history of TIA in January 2018 #6 underlying history of coronary artery disease with previous stent placement #7 elevated INR, without use of anticoagulation, possibly liver injury At this time neurology consultation has been requested Will check echocardiogram and carotid Doppler and add cardiology consult Continue same medication otherwise patient counseled in length in regards to alcohol and marijuana use Recheck labs and follow in a.m.
[2018-03-17] MEDS: SODIUM CHLORIDE 0.9% 1,000 ML IV SCH ×3 (08:14→17:36)
[2018-03-17] MEDS: THIAMINE 100 MG TAB PO SCH ×2 (08:14→17:37)
[2018-03-17] MEDS: ASPIRIN 325 MG TAB PO SCH (08:14)
[2018-03-17] MEDS: ENOXAPARIN 40 MG/0.4 ML SYRINGE SQ SCH (08:15)
--- NOTE | 2018-03-17 10:38 | P.PN ---
Subjective Progress Note Date: 03/17/18 Jr Christianson is a 72-year-old male who was brought in to [facility] emergency room after being found unresponsive, patient states that he went out with some friends and had multiple beers he returned home and went into his basement, his girlfriend found him slumped over the bar in the basement and he was an responsive EMS were called and patient was brought into emergency room, he was evaluated in the emergency room and was admitted to medical floor for further evaluation and treatment. In the emergency room patient had evidence of elevated serum alcohol level at 117 marijuana screen was also positive, lactic acid was elevated at 2.9 INR was also elevated at 1.8 Patient has a known history of stroke and is maintained on aspirin, he also has known history of coronary artery disease and had a stent placed more than 10 years ago. On 02/14/2018 patient is currently resting comfortably in bed. Patient is alert and oriented 3. Speech is clear. Neurology has ordered an MRI of the brain and EEG. This time patient denies chest pain or shortness of breath. Patient denies nausea vomiting or diarrhea. Denies any urinary burning or frequency. Objective - Vital Signs Vital signs: Vital Signs Temp 97.9 F 03/17/18 08:00 Pulse 68 03/17/18 08:00 Resp 18 03/17/18 08:00 BP 126/75 03/17/18 08:00 Pulse Ox 97 03/17/18 08:00 Intake & Output 03/16/18 03/17/18 03/17/18 18:59 06:59 18:59 Intake Total 1060 240 Balance 1060 240 Weight 76.7 kg 76.7 kg Intake: Intake, IV Titration 700 Amount Sodium Chloride 0.9% 1, 700 000 ml @ 100 mls/hr IV . Q10H JUVE Rx#:[id number] Oral 360 240 Other: # Voids 1 2 1 - Exam In general patient is alert and oriented 3 in no apparent distress HEENT head normocephalic and atraumatic Neck is supple no JVD no goiter no lymphadenopathy Chest exam reveals a few scattered rhonchi no wheezing Cardiac exam reveals regular heart sounds S1 and S2 no gallops no murmurs Abdomen is soft nontender no organomegaly with normal bowel sounds Extremity exam reveals no edema no cyanosis or clubbing - Labs CBC & Chem 7: 03/16/18 14:53 03/16/18 14:53 Labs: Abnormal Lab Results - Last 24 Hours (Table) 03/16/18 03/16/18 Range/Units 14:53 14:53 WBC 10.7 H (3.8-10.6) k/uL Neutrophils # 8.2 H (1.3-7.7) k/uL Chloride 108 H (98-107) mmol/L Glucose 121 H (74-99) mg/dL Microbiology - Last 24 Hours (Table) 03/15/18 22:35 Urine Culture - Preliminary Urine,Catheterized Assessment and Plan Assessment: #1 syncope. 2-D echo ordered. Cardiology services have been consulted. Carotid Doppler completed showing mild degree of grayscale atheromatous plaquing withsonographically evident hemodynamically significant stenosis within either visualized carotid arterial system. Awaiting cardiology consult. Neurology services does appear patient may have had a drug and alcohol ingestion causing a syncopal episode. MRI and EEG has been ordered. #2 elevated lactic acid. repeat lactic Acid 1.3. #3 alcohol intoxication #4 THC positive #5 underlying history of TIA in January 2018 #6 underlying history of coronary artery disease with previous stent placement #7 elevated INR, without use of anticoagulation, possibly liver injury. Repeat INR has been ordered for a.m. DVT prophylaxis Lovenox. GI prophylaxis Protonix I performed an examination of the patient and discussed their management with the Nurse Practitioner. I have reviewed the Nurse Practitioner's notes and agree with the documented findings and plan of care
[2018-03-17 11:44] LABS: Basophils # (A) 0.1 k/uL (0-0.2); Basophils % (A) 1 %; Eosinophils # (A) 0.1 k/uL (0-0.7); Eosinophils % (A) 1 %; HGB 14.2 gm/dL (13.0-17.5); Lymphocytes # (A) 1.9 k/uL (1.0-4.8); Lymphocytes % (A) 21 %; MCH 32.3 pg (25.0-35.0); MCHC 33.9 g/dL (31.0-37.0); MCV 95.4 fL (80.0-100.0); Mean Platelet Volume 6.4; Monocytes # (A) 0.7 k/uL (0-1.0); Monocytes % (A) 8 %; Neutrophils # (A) 6.5 k/uL (1.3-7.7); Neutrophils % (A) 69 %; Platelet Count 226 k/uL (150-450); RBC 4.41 m/uL (4.30-5.90); RDW 12.7 % (11.5-15.5); WBC 9.4 k/uL (3.8-10.6)
[2018-03-17 11:58] LABS: Albumin 3.6 g/dL (3.5-5.0); Calcium 9.3 mg/dL (8.4-10.2); Potassium 4.7 mmol/L (3.5-5.1); Total Bilirubin 0.7 mg/dL (0.2-1.3); Total Protein 6.4 g/dL (6.3-8.2)
--- NOTE | 2018-03-17 14:40 | P.CRDCN ---
History of Present Illness Consult date: 03/17/18 History of present illness: This is a 72-year-old male patient who follows with Dr. Delacruz with past medical history of gastroesophageal reflux disease, hyperlipidemia, hypertension, osteoarthritis. Patient also has alcohol abuse with drinking 4-5 beers per day on most days and marijuana use. Patient states that he was smoking marijuana in the basement and all of a sudden passed out. He states he has had this happen before when he has been smoking pot. He had friends at the house and found him and he was brought into [facility] emergency center for evaluation. He has been admitted to the selective care unit and seen in consultation by neurology with recommendations for aspirin and statin. MRI of the brain and EEG were ordered. Patient states that he is feeling fine now. He denies any lightheadedness or dizziness, no headache. Patient denies any chest pain, shortness of breath. He denies any history of a myocardial infarction. He has seen Dr. Moscoso in the past and had a stent done in 2007. He states he's also had several stress tests since that time which have been normal according to the patient. EKG reveals sinus mechanism with regular rhythm with PVCs. EKG will be repeated. Chest x-ray reveals no active cardiac pulmonary disease. Normal heart. CAT scan of the brain showed no acute intracranial abnormality. Cerebral atrophy and chronic small vessel ischemia. Carotid Doppler/duplex showed mild degree of plaquing with no hemodynamically significant stenosis. Laboratory data review: WBC 9.4, hemoglobin 14.2, platelets 226, sodium 139, potassium 4.7, creatinine 1.02, cardiac enzymes negative 1. Triglycerides 202 , cholesterol 193, LDL 111 and HDL 42. Lactic acid 2.9 followed by 1.3. Urine drug screen detected marijuana and serum alcohol 117. Current cardiac medications include aspirin 162 mg daily, Lipitor 20 mg Sunday, atenolol 25 mg daily. At the time of my exam: CONSTITUTIONAL: Denies fever. Denies chills. EYES: Denies blurred vision. Denies vision changes. Denies eye pain. EARS, NOSE, MOUTH & THROAT: Denies headache. Denies sore throat. Denies ear pain. CARDIOVASCULAR: Denies chest pain. Denies shortness of breath. Denies orthopnea. Denies PND. Denies palpitations. RESPIRATORY: Denies cough. GASTROINTESTINAL: Denies abdominal pain. Denies diarrhea. Denies constipation. Denies nausea. Denies vomiting. MUSCULOSKELETAL: Denies myalgias. Complains of pain to the left elbow. INTEGUMENTARY: Denies pruitis. Denies rash. NEUROLOGIC: Denies numbness. Denies tingling. Denies weakness. PSYCHIATRIC: Denies anxiety. Denies depression. ENDOCRINE: Denies fatigue. Denies weight change. Denies polydipsia. Denies polyurina. GENITOURINARY: Denies burning, hematuria or urgency with micturation. HEMATOLOGIC: Denies history of anemia. Denies bleeding. Blood pressure 126/75, heart rate 68, afebrile, maintaining oxygen saturation on room air. GENERAL: This is a 72-year-old male. He is sitting up in bed and appears to be in no acute distress. HEENT: Head is atraumatic, normocephalic. Pupils are equal, round. Sclerae anicteric. Conjunctivae are clear. Mucous membranes of the mouth are moist. Neck is supple. There is no jugular venous distention. No carotid bruit is heard. LUNGS: Mostly clear to auscultation no wheezes, a few scattered rhonchi. No chest wall tenderness is noted on palpation or with deep breathing. HEART: Regular rate and rhythm without murmurs, rubs or gallops. S1 and S2 heard. ABDOMEN: Soft, nontender. Bowel sounds are heard. No organomegaly noted. EXTREMITIES: No evidence of lower extremity edema and no calf tenderness noted. VASCULAR: dorsalis pedis pulses palpated, no evidence of clubbing. NEUROLOGIC: Patient is awake, alert and oriented x3. ASSESSMENT Syncopal episode most likely related to alcohol and marijuana ingestion. History of coronary artery disease status post stent [place] [address] Moscoso. Hypertension. Hyperlipidemia. Gastroesophageal reflux disease. Benign prostatic hypertrophy. PLAN EKG with significant artifact. Repeat EKG to be obtained. Orthostatic vital signs. Continue aspirin 162 mg daily, Lipitor 20 mg Sunday, atenolol 25 mg daily. Thank you kindly for this consultation. Nurse Practitioner note has been reviewed, I agree with a documented findings and plan of care. Patient was seen and examined. Past Medical History Past Medical History: GERD/Reflux, Hearing Disorder / Deafness, Hyperlipidemia, Hypertension, Osteoarthritis (OA) Additional Past Medical History / Comment(s): Hard of hearing. Recent rectal bleeding, black stools, white stools. History of Any Multi-Drug Resistant Organisms: None Reported Past Surgical History: Heart Catheterization With Stent, Orthopedic Surgery Past Anesthesia/Blood Transfusion Reactions: No Reported Reaction Date of Last Stent Placement:: 2007 Past Psychological History: No Psychological Hx Reported Smoking Status: Former smoker Past Alcohol Use History: Occasional Additional Past Alcohol Use History / Comment(s): Quit smoking 15 yrs ago, smoked 40-45yrs, 1 PPD. Past Drug Use History: Marijuana Additional Drug Use History / Comment(s): Uses marajuana on the weekends. - Past Family History Mother Family Medical History: No Reported History Medications and Allergies Home Medications Medication Instructions Recorded Confirmed Type Aspirin EC [Ecotrin Low Dose] 162 mg PO DAILY 12/18/17 02/15/18 History Atenolol [Tenormin] 25 mg PO QAM 12/18/17 03/15/18 History Atorvastatin [Lipitor] 20 mg PO MOWEFR 12/18/17 02/15/18 History Omeprazole 20 mg PO DAILY 12/18/17 02/15/18 History Tamsulosin [Flomax] 0.4 mg PO DAILY 12/18/17 02/15/18 History Allergies Allergy/AdvReac Type Severity Reaction Status Date / Time No Known Allergies Allergy Verified 03/15/18 23:10 Physical Exam Vitals: Vital Signs Temp Pulse Resp BP Pulse Ox 03/17/18 08:00 97.9 F 68 18 126/75 97 03/17/18 05:29 98.1 F 60 15 138/81 95 03/17/18 00:31 98.0 F 69 16 134/70 94 L 03/16/18 20:26 98.3 F 85 16 146/76 95 03/16/18 16:00 99.4 F 81 17 130/82 97 03/16/18 12:00 85 17 128/83 97 Intake and Output 03/16/18 03/17/18 03/17/18 22:59 06:59 14:59 Intake Total 120 240 Balance 120 240 Intake: Oral 120 240 Other: # Voids 1 2 1 Weight 76.7 kg 76.7 kg Results 03/17/18 10:50 03/17/18 10:50 Cardiac Enzymes 03/16/18 03/16/18 Range/Units 14:53 14:53 AST 39 (17-59) U/L Troponin I 0.026 (0.000-0.034) ng/mL CBC 03/16/18 Range/Units 14:53 WBC 10.7 H (3.8-10.6) k/uL RBC 4.38 (4.30-5.90) m/uL Hgb 14.1 (13.0-17.5) gm/dL Hct 41.4 (39.0-53.0) % Plt Count 215 (150-450) k/uL Comprehensive Metabolic Panel 03/16/18 Range/Units 14:53 Sodium 139 (137-145) mmol/L Potassium 4.1 (3.5-5.1) mmol/L Chloride 108 H (98-107) mmol/L Carbon Dioxide 26 (22-30) mmol/L BUN 18 (9-20) mg/dL Creatinine 1.16 (0.66-1.25) mg/dL Glucose 121 H (74-99) mg/dL Calcium 9.2 (8.4-10.2) mg/dL AST 39 (17-59) U/L ALT 46 (21-72) U/L Alkaline Phosphatase 67 (38-126) U/L Total Protein 6.3 (6.3-8.2) g/dL Albumin 3.5 (3.5-5.0) g/dL Current Medications Generic Name Dose Route Start Last Admin Trade Name Freq PRN Reason Stop Dose Admin Aspirin 325 mg 03/16/18 22:43 03/17/18 08:14 Aspirin PO 325 mg DAILY [facility] Administration Enoxaparin Sodium 40 mg 03/16/18 09:00 03/17/18 08:15 Lovenox SQ Not Given DAILY JUVE Sodium Chloride 1,000 mls @ 100 mls/hr 03/15/18 22:45 03/17/18 08:15 Saline 0.9% IV Not Given .Q10H JUVE Lorazepam 1 mg 03/15/18 22:42 Ativan IV Q2HR PRN CIWA 8 or 9 Lorazepam 1 mg 03/15/18 22:42 Ativan IV Q1HR PRN CIWA 10 to 15 Lorazepam 2 mg 03/15/18 22:42 03/16/18 00:08 Ativan IV 03/17/18 22:42 2 mg Q10M PRN Administration CIWA 16 or higher Pantoprazole Sodium 40 mg 03/18/18 07:30 Protonix PO AC-[id number] [facility] Thiamine HCl 100 mg 03/16/18 12:00 03/17/18 08:14 Vitamin B-1 PO 100 mg BID@1200,1700 JUVE Administration Intake and Output 03/16/18 03/17/18 03/17/18 22:59 06:59 14:59 Intake Total 120 240 Balance 120 240 Intake: Oral 120 240 Other: # Voids 1 2 1 Weight 76.7 kg 76.7 kg 03/16/18 14:53 03/16/18 14:53
--- NOTE | 2018-03-17 16:46 | P.PN ---
Subjective Progress Note Date: 03/17/18 Patient is a pleasant 72-year-old male who is being followed by the neurology service for episode of unresponsiveness. She has history of hypertension, coronary artery disease with stent, hyperlipidemia, GERD, TIA, osteoarthritis, and alcohol and marijuana use. Patient states he got up in the morning and was functioning okay. He states he had gone out to a local establishment and had a few beers and came home. Patient states he was in the basement and doesn't remember what happened after that. Patient states his girlfriend came home and found him slumped over the bar unresponsive. EMS was called and patient was brought to [facility] for further evaluation. Computed tomography scan of the brain was done which showed no acute process. Carotid Doppler showed no hemodynamically significant stenosis. Cardiology has been consulted for syncope. At the time of my evaluation, patient's resting comfortably in bed and appears to be in no acute distress. Objective - Vital Signs Vital signs: Vital Signs Temp 97.9 F 03/17/18 08:00 Pulse 66 03/17/18 12:00 Resp 17 03/17/18 12:00 BP 147/94 03/17/18 12:00 Pulse Ox 96 03/17/18 12:00 Intake & Output 03/16/18 03/17/18 03/17/18 18:59 06:59 18:59 Intake Total 1060 360 Balance 1060 360 Weight 76.7 kg 76.7 kg Intake: Intake, IV Titration 700 Amount Sodium Chloride 0.9% 1, 700 000 ml @ 100 mls/hr IV . Q10H JUVE Rx#:[id number] Oral 360 360 Other: # Voids 1 2 2 # Bowel Movements 1 - Exam PHYSICAL EXAM: GENERAL APPEARANCE: Patient is a well-developed, male who appears to be in no acute distress. HEENT: Normocephalic, atraumatic, no facial asymmetry is seen. Neck is supple with no masses felt. CARDIOVASCULAR: Regular rate and rhythm. ABDOMEN: Nontender, nondistended. EXTREMITIES: Show no edema or clubbing. NEUROLOGICAL EXAM: Patient is awake, alert, and oriented 3. Speech-language are normal. Strength is full in all 4 extremities. Sensory exam is normal to light touch in all 4 extremities. No facial asymmetry seen on cranial nerve testing. No tremors or seizure-like activity noted. - Labs CBC & Chem 7: 03/17/18 10:50 03/17/18 10:50 Labs: Abnormal Lab Results - Last 24 Hours (Table) 03/17/18 Range/Units 10:50 Chloride 108 H (98-107) mmol/L Microbiology - Last 24 Hours (Table) 03/15/18 22:35 Urine Culture - Final Urine,Catheterized Assessment and Plan Plan: Impression: 1. Unresponsive episode, possible drug ingestion 2. History of TIA 3. Alcohol ingestion 4. Hyperlipidemia 5. Coagulopathy Recommendation: It does appear patient may have had drug and alcohol ingestion causing a syncopal episode. No neurological deficits noted on exam. No family at bedside but patient seems appropriate and conversant. It is not clear whether this is fully back to baseline for patient. Patient had recent TIA and was placed on aspirin. I recommend continuing aspirin and statin therapy. Lipid panel showed elevated triglycerides and LDL. Patient does have risk factors for stroke such as age, dyslipidemia, history of TIA and small vessel ischemic disease. I will order an MRI of the brain and an EEG to evaluate possible contributing etiology. Patient had a CT angiogram of the brain and neck approximately one month ago which was negative for any abnormality. CT of the brain this admission was negative for any acute findings. Patient has little memory of episode that led him to be admitted to the hospital. Continue neurological checks. I will continue to follow with you. Further recommendations following testing. I performed an examination of the patient and discussed the management with the CASHIER RECEPTIONIST. I have reviewed the CASHIER RECEPTIONIST notes and agree with the findings and plan of care.
[2018-03-17 21:51] VITALS: TEMP 98.1
[2018-03-18] MEDS: SODIUM CHLORIDE 0.9% 1,000 ML IV SCH ×2 (03:41→08:24)
[2018-03-18 06:42] LABS: INR 1.1 (<1.2); Prothrombin Time 10.5 sec (9.0-12.0)
[2018-03-18 06:44] LABS: Basophils # (A) 0.1 k/uL (0-0.2); Basophils % (A) 1 %; Eosinophils # (A) 0.3 k/uL (0-0.7); Eosinophils % (A) 3 %; HCT 44.1 % (39.0-53.0); Lymphocytes # (A) 2.4 k/uL (1.0-4.8); Lymphocytes % (A) 23 %; MCH 32.3 pg (25.0-35.0); MCHC 33.9 g/dL (31.0-37.0); MCV 95.1 fL (80.0-100.0); Mean Platelet Volume 6.5; Monocytes # (A) 0.8 k/uL (0-1.0); Monocytes % (A) 8 %; Neutrophils # (A) 6.6 k/uL (1.3-7.7); Neutrophils % (A) 64 %; Platelet Count 228 k/uL (150-450); RBC 4.64 m/uL (4.30-5.90); RDW 12.6 % (11.5-15.5); WBC 10.3 k/uL (3.8-10.6)
[2018-03-18 07:10] LABS: Albumin 3.7 g/dL (3.5-5.0); Calcium 9.9 mg/dL (8.4-10.2); Potassium 5.1 mmol/L (3.5-5.1); Total Bilirubin 0.9 mg/dL (0.2-1.3); Total Protein 6.6 g/dL (6.3-8.2)
[2018-03-18] MEDS ORDERED: PANTOPRAZOLE 40 MG TABLET PO SCH (07:30)
[2018-03-18] MEDS: ASPIRIN 325 MG TAB PO SCH (08:21)
[2018-03-18] MEDS: THIAMINE 100 MG TAB PO SCH (08:22)
[2018-03-18] MEDS: ENOXAPARIN 40 MG/0.4 ML SYRINGE SQ SCH (08:22)
[2018-03-18] MEDS ORDERED: ATORVASTATIN 40 MG TAB PO SCH (09:00)
[2018-03-18] MEDS ORDERED: TAMSULOSIN 0.4 MG CAP.ER.24H PO SCH (09:00)
[2018-03-18] MEDS ORDERED: ASPIRIN 81 MG PO SCH (09:00)
[2018-03-18] MEDS ORDERED: ATENOLOL 25 MG TAB PO SCH (09:00)
[2018-03-18] MEDS ORDERED: NON-FORMULARY DRUG (Omeprazole [Omeprazole] 20 MG) PO SCH (09:00)
[2018-03-18 09:18] VITALS: BP 130/86; PULSE 80; RESP 20
--- NOTE | 2018-03-18 10:38 | ECHOF ---
Referral Reason:syncope MEASUREMENTS -------- HEIGHT: 177.8 cm WEIGHT: 75.7 kg BP: 148/76 RVIDd: 3.5 cm (< 3.3) IVSd: 1.4 cm (0.6 - 1.1) LVIDd: 4.1 cm (3.9 - 5.3) LVPWd: 1.5 cm (0.6 - 1.1) IVSs: 1.8 cm LVIDs: 3.1 cm LVPWs: 1.7 cm LA Diam: 3.1 cm (2.7 - 3.8) LAESV Index (A-L): 17.91 ml/m Ao Diam: 4.1 cm (2.0 - 3.7) AV Cusp: 1.9 cm (1.5 - 2.6) MV EXCURSION: 12.148 mm (> 18.000) MV EF SLOPE: 39 mm/s (70 - 150) EPSS: 1.2 cm MV E Richard: 0.49 m/s MV DecT: 366 ms MV A Richard: 0.86 m/s MV E/A Ratio: 0.56 RAP: 5.00 mmHg RVSP: 25.25 mmHg FINDINGS -------- Sinus rhythm. This was a technically adequate study. The left ventricular size is normal. There is moderate concentric left ventricular hypertrophy. O verall left ventricular systolic function is mild-moderately impaired with, an EF between 40 - 45 %. Basal inferior LV wall motion is hypokinetic. Basal inferoseptal LV wall motion is hypokinetic. The right ventricle is mildly enlarged. Normal LA size by volume 22+/-6 ml/m2. The right atrium is normal in size. There is mild aortic valve sclerosis. The mitral valve is normal. The tricuspid valve appears structurally normal. There is no pulmonic regurgitation present. The aortic root is dilated measuring 4.1cm. IVC Not well visulized. There is no pericardial effusion. CONCLUSIONS -------- 1. Sinus rhythm. 2. This was a technically adequate study. 3. The left ventricular size is normal. 4. There is moderate concentric left ventricular hypertrophy. 5. Overall left ventricular systolic function is mild-moderately impaired with, an EF between 40 - 45 %. 6. Basal inferior LV wall motion is hypokinetic. 7. Basal inferoseptal LV wall motion is hypokinetic. 8. The right ventricle is mildly enlarged. 9. Normal LA size by volume 22+/-6 ml/m2. 10. The right atrium is normal in size. 11. There is mild aortic valve sclerosis. 12. The mitral valve is normal. 13. The tricuspid valve appears structurally normal. 14. There is no pulmonic regurgitation present. 15. The aortic root is dilated measuring 4.1cm. 16. IVC Not well visulized. 17. There is no pericardial effusion. ETCHER HAND: Rebecca Cummings RDCS
--- NOTE | 2018-03-18 10:46 | P.DS ---
Providers Date of admission: 03/15/18 22:42 Expected date of discharge: 03/18/18 Attending physician: Tracy Navarrete Consults: 03/15/18 22:43 Consult Physician Routine Consulting Provider: Porfirio Bojorquez Consult Reason/Comments: ams Do you want consulting provider notified?: Yes 03/16/18 14:08 Consult Physician Routine Consulting Provider: Roman Ivy Consult Reason/Comments: syncope Do you want consulting provider notified?: Yes Primary care physician: Lilo [facility] Course: Discharge diagnosis #1 syncope. 2-D echo ordered. Cardiology services have been consulted. Carotid Doppler completed showing mild degree of grayscale atheromatous plaquing withsonographically evident hemodynamically significant stenosis within either visualized carotid arterial system. Awaiting cardiology consult. Neurology services does appear patient may have had a drug and alcohol ingestion causing a syncopal episode. MRI and EEG has been ordered. Patient refusing MRI. Patient will be DC'd home. 2-D echo completed but not read. Patient does have follow-up appointment cardiology services. Resume home meds per cardiology services. #2 elevated lactic acid. repeat lactic Acid 1.3. #3 alcohol intoxication #4 THC positive #5 underlying history of TIA in January 2018 #6 underlying history of coronary artery disease with previous stent placement #7 elevated INR, without use of anticoagulation, possibly liver injury. Repeat INR has been ordered for a.m. repeat INR 1.1 Hospital course Jr Christianson is a 72-year-old male who was brought in to [facility] emergency room after being found unresponsive, patient states that he went out with some friends and had multiple beers he returned home and went into his basement, his girlfriend found him slumped over the bar in the basement and he was an responsive EMS were called and patient was brought into emergency room, he was evaluated in the emergency room and was admitted to medical floor for further evaluation and treatment. In the emergency room patient had evidence of elevated serum alcohol level at 117 marijuana screen was also positive, lactic acid was elevated at 2.9 INR was also elevated at 1.8 Patient has a known history of stroke and is maintained on aspirin, he also has known history of coronary artery disease and had a stent placed more than 10 years ago. On 03/17/2018 patient is currently resting comfortably in bed. Patient is alert and oriented 3. Speech is clear. Neurology has ordered an MRI of the brain and EEG. This time patient denies chest pain or shortness of breath. Patient denies nausea vomiting or diarrhea. Denies any urinary burning or frequency. On 03/18/2018 patient is currently resting comfortably in bed patient is alert and oriented 3 patient is very eager to go home due to patient"s dad tomorrow. Patient has refused MRI. Per neurology is likely due to drug ingestion. 2-D echo completed but not read patient does have follow-up appointment with cardiology services. Per nursing staff patient has been sinus rhythm on monitor. Home meds resumed per cardiology services. Patient to follow up with cardiology, neuro, and primary care. At this time patient is alert and oriented 3 with no neuro deficits. Patient denies chest pain or shortness breath. Patient denies nausea vomiting or diarrhea. Patient denies any urinary burning or frequency I performed an examination of the patient and discussed their management with the Nurse Practitioner. I have reviewed the Nurse Practitioner's notes and agree with the documented findings and plan of care Patient Condition at Discharge: Stable Plan - Discharge Summary Discharge Rx Participant: No New Discharge Prescriptions: Continue Tamsulosin [Flomax] 0.4 mg PO DAILY Omeprazole 20 mg PO DAILY Atorvastatin [Lipitor] 20 mg PO MOWEFR Atenolol [Tenormin] 25 mg PO QAM Aspirin EC [Ecotrin Low Dose] 162 mg PO DAILY Discharge Medication List Aspirin EC [Ecotrin Low Dose] 162 mg PO DAILY 12/18/17 [History] Atenolol [Tenormin] 25 mg PO QAM 12/18/17 [History] Atorvastatin [Lipitor] 20 mg PO MOWEFR 12/18/17 [History] Omeprazole 20 mg PO DAILY 12/18/17 [History] Tamsulosin [Flomax] 0.4 mg PO DAILY 12/18/17 [History] Follow up Appointment(s)/Referral(s): Miguelina Moscoso MD [STAFF PHYSICIAN] - 04/03/18 3:30 pm (Please keep previous follow up appointment with Dr. Moscoso. ) Lilo Hu DO [Primary Care Provider] - 03/26/18 11:00 am ([facility] Maria R Hilario NPC [Nurse Practitioner] - 1 Week (Office will call with follow up appointment.) Patient Instructions/Handouts: Transient Ischemic Attack (DC), Safe Use of Narcotics (DC), At-Risk Alcohol Use (DC) Discharge Disposition: HOME SELF-CARE
== END 2018-03-18 11:35 | disposition home or self-care (01) | DRG 918 ==
LOC: EC 21:10 → 3SCARD 22:42
PROVIDERS: ADMIT Internal Medicine; ATTEND Internal Medicine
DX: T40.7X1A Poisoning by cannabis (derivatives), accidental (unintentional), initial encounter (principal); D68.9 Coagulation defect, unspecified; E87.2 Acidosis; T51.0X1A Toxic effect of ethanol, accidental (unintentional), initial encounter; R55 Syncope and collapse; E78.1 Pure hyperglyceridemia; E78.5 Hyperlipidemia, unspecified; F10.129 Alcohol abuse with intoxication, unspecified; F12.90 Cannabis use, unspecified, uncomplicated; H91.90 Unspecified hearing loss, unspecified ear; I10 Essential (primary) hypertension; I25.10 Atherosclerotic heart disease of native coronary artery without angina pectoris; I49.3 Ventricular premature depolarization; K21.9 Gastro-esophageal reflux disease without esophagitis; N40.0 Benign prostatic hyperplasia without lower urinary tract symptoms; M19.90 Unspecified osteoarthritis, unspecified site; Z86.73 Personal history of transient ischemic attack (TIA), and cerebral infarction without residual deficits; Z87.891 Personal history of nicotine dependence; Z95.5 Presence of coronary angioplasty implant and graft; Z79.82 Long term (current) use of aspirin; Z79.899 Other long term (current) drug therapy; Y92.9 Unspecified place or not applicable
CPT/HCPCS: 36415; 70450; 71045; 80053; 80061; 80306; 80320; 81001; 82140; 82550; 82553; 83520; 83605; 83735; 84100; 84484; 85025; 85610; 85730; 87086; 93005; 93306; 93880; 96361; 96374; 96376; 99285

== ENCOUNTER → 2021-01-19 | Outpatient (CLI) | payer MEDICARE ==
--- NOTE | 2021-01-19 16:26 | MR ---
EXAMINATION TYPE: MR cervical spine wo con DATE OF EXAM: 01/19/2021 COMPARISON: CT brain 02/15/2018 HISTORY: 75-year-old male Cervical radiculopathy, spondylolisthesis of cervical region TECHNIQUE: Multiplanar, multisequence images of the cervical spine were acquired without contrast. FINDINGS: There appears to be a chronic, ununited type I dens fracture. Margins are corticated and there is a s mall amount of fluid interposed at the fracture site. No predental space widening or prevertebral sof t tissue swelling. Trace grade 1 retrolisthesis C5-C6. Moderate disc/endplate degenerative changes especially C5-C6 and mild at additional levels. Some cecily atous Modic type I endplate change noted at C5-C6. Desiccated and bulging discs are present throughou t ligamentum flavum thickening is present throughout as well as hypertrophic facet and uncovertebral joint arthropathy. At C2-C3, right greater than left uncovertebral joint and facet arthropathy is present with mild righ t neuroforaminal stenosis. Tiny disc osteophyte complex impresses onto the ventral thecal sac. Overal l mild narrowing of the spinal canal. At C3-C4, broad-based disc osteophyte complex with uncovertebral joint and facet degenerative change. Ligamentum flavum thickening. Severe right and moderate left neural foraminal stenosis. Mild overall narrowing of the spinal canal with abutment of the ventral cord. At C4-C5, disc osteophyte complex with ligamentum flavum thickening and left greater than right facet and uncovertebral joint arthropathy. Changes result in moderate to severe left and moderate right ne uroforaminal stenosis. There is moderate spinal canal stenosis with abutment and flattening of both t he dorsal and ventral cord but no discrete cord signal abnormality. At C5-C6, similar changes are present. This results in severe bilateral neural foraminal stenosis. Mo derate overall spinal canal stenosis with abutment and flattening of both the dorsal and ventral cord but no discrete T2-weighted cord signal abnormality. At C6-C7, there is broad-based disc osteophytic complex and ligamentum flavum thickening mildly narro wing the spinal canal. Slight abutment of the dorsal cord without any cord flattening. Facet and unco vertebral joint arthropathy left more so than the right. Changes result in moderate left and mild rig ht neuroforaminal stenosis. At C7-T1, hypertrophic facet arthropathy causing mild bilateral neuroforaminal narrowing. No spinal c anal stenosis. IMPRESSION: 1. Chronic ununited type I dens fracture. Review of the patient's 02/15/2018 CT head shows that it wa s present at that time as well. 2. Moderate multilevel disc/endplate degenerative change. Some associated edematous Modic type I endp late change at C5-C6. Trace grade 1 retrolisthesis C5-C6. 3. Multilevel disc osteophyte complexes, ligamentum flavum thickening, and hypertrophic facet and unc overtebral joint arthropathy. 4. Changes result in moderate spinal canal stenosis at C4-C5 and C5-C6 with abutment and flattening o f both the dorsal and ventral cord. No myelopathic cord signal change. 5. Mild overall narrowing of the spinal canal at C2-C3, C3-C4, and C6-C7. 6. Variable neuroforaminal stenoses as outlined above, severe on the right at C3-C4, moderate to deven re on the left at C4-C5, and severe on both sides at C5-C6.
== END | disposition home or self-care (01) ==
LOC: RADMRIMAIN 12:29
PROVIDERS: ATTEND Family Medicine
DX: M48.02 Spinal stenosis, cervical region (principal); M99.71 Connective tissue and disc stenosis of intervertebral foramina of cervical region; M43.12 Spondylolisthesis, cervical region; M47.22 Other spondylosis with radiculopathy, cervical region; M89.38 Hypertrophy of bone, other site; R60.0 Localized edema
CPT/HCPCS: 72141

== ENCOUNTER → 2021-01-24 | Outpatient (CLI) | payer MEDICARE ==
[2021-01-24 09:13] VITALS: BP 102/57; PULSE 60; RESP 16; TEMP 97.3
--- NOTE | 2021-01-24 09:25 | P.PAINCN ---
History of Present Illness - Reason for Consult Consult date: 01/24/21 - History of Present Illness This is 75 years old male with a chronic history of severe neck pain, started more than 2 years ago ,patient,denies any initiating event, he reported that the neck pain associated with numbness and tingling sensation in the upper extremity bilaterally but is more prominent on the left side, patient has cervical epidural steroid injection ( done at the wall at [facility] ) which provided him with excellent pain relief for almost a year, currently he is having severe pain and numbness in the upper extremity, he feels some left lower extremity weakness, with occasional dropping of objects from his left hand, so patient complaining of severe low back pain with radiation to the lower extremity, he denies any fever or numbness but he denies any motor or sensory deficit in the lower extremity, he shouldn't continue to use heat therapy at home, and he is currently on Celebrex which provide him with some relief. Past Medical History Past Medical History: CVA/TIA, GERD/Reflux, Hearing Disorder / Deafness, Hyperlipidemia, Osteoarthritis (OA) Additional Past Medical History / Comment(s): Hard of hearing. pain lt arm lt 2 fingers and thumb, shoulder, neck,. and rt leg below buttocks History of Any Multi-Drug Resistant Organisms: None Reported Past Surgical History: Heart Catheterization With Stent, Orthopedic Surgery Additional Past Surgical History / Comment(s): lt rotator cuff repair Past Anesthesia/Blood Transfusion Reactions: No Reported Reaction Date of Last Stent Placement:: 2007 Past Psychological History: No Psychological Hx Reported Smoking Status: Former smoker Past Alcohol Use History: Occasional Additional Past Alcohol Use History / Comment(s): Quit smoking 15 yrs ago, smoked 40-45yrs, 1 PPD. Past Drug Use History: Marijuana Additional Drug Use History / Comment(s): Uses marajuana occasional - Past Family History Mother Family Medical History: No Reported History Medications and Allergies Home Medications Medication Instructions Recorded Confirmed Type Aspirin EC [Ecotrin Low Dose] 162 mg PO DAILY 12/18/17 01/21/21 History Atorvastatin [Lipitor] 20 mg PO MOWEFR 12/18/17 01/21/21 History Omeprazole 20 mg PO DAILY 12/18/17 01/21/21 History Tamsulosin [Flomax] 0.4 mg PO DAILY 12/18/17 01/21/21 History atenoloL [Tenormin] 25 mg PO QAM 12/18/17 01/21/21 History Celecoxib [CeleBREX] 200 mg PO DAILY 01/21/21 01/21/21 History Allergies Allergy/AdvReac Type Severity Reaction Status Date / Time No Known Allergies Allergy Verified 01/21/21 12:24 Physical Exam Vitals: Vital Signs Temp Pulse Resp BP Pulse Ox 01/24/21 09:08 97.3 F L 60 16 102/57 95 Physical Examinations : -Constitutiona : Cooperative , not in acute distress . -HEENT : nech : supple , no Lymphadenopathy , normal thyroid size . : eyes : no ptosis , no icterus, no photophobia . - neurologic : Cranial nerve II to XII intact , no focal neurological deffecit . -psychatric : alert , oriented X 3 , appropriate affect , intact judgment and insight . -Lymphatic : no Lymphadenopathy . - musculoskeltal : Cervical Spine motor stregnth in the deltoid and biceps, normal right side , normal Left side motor stregnth biceps and the wrist extensors normal right side ,normal left side . motor stregnth in the triceps muscle . normal Right side , normal Left side deep tendon reflexes normal at the biceps , normal at Brachioradialis , normal at triceps. cervical facet loading test: Positive Bilaterally Spurling test= positive Right , positive left. Neck distraction test= positive Right , positive left. Lisa sign= positive right, positive left . Lumber spine moter stegnth lower extremities ,thigh and legs 5/5 Right side , 5/5 Left side deep tendon reflexes : normal Knee Jerk , normal ankle Jerk lumber facet Loading Test =positive Right , positive Left Range of motion of the lumbar spine Flexion 30 degrees, extension 10 degrees strait leg raising test = negative bilaterally Fabere test= positive Right , and positive LT . Results Comments: MRI of the cervical spine= multilevel cervical degenerative disc disease multilevel cervical spinal stenosis multilevel cervical foraminal stenosis, multilevel cervical facet arthropathy Assessment and Plan Plan: Assessment and plan=1-cervical spinal stenosis. 2-cervical degenerative disc disease. 3-cervical spondylosis with cervical facet arthropathy without myelopathy. Patient could benefit from cervical epidural steroid injection.at C7-T1 Time with Patient: Greater than 30 PQRS Measure Charge Sheet Measure #130: Documentation of Current Meds in Medical Chart: Patient's medications documented in chart Measure #226: Tobacco Use: Screen & Cessation Intervention: Pt not a tobacco user Measure #111: Pneumonia Vaccination: Pneumococcal vaccine administered or previously received Measure #47: Advance Care Plan: Advance care planning discussed & documented, pt chose/unable to give Measure #412: Opioid Treatment Agreement: No documentation of signed opioid treatment agreement Measure #408: Opioid Therapy Follow-up Evaluation: Patient had NO f/u eval minimum every 3 months during opioid therapy Measure #317: Preventitive Care & Scrn High Bld Press & F/U: Normal blood pr essure, f/u not required Measure #128: Body Mass Index (BMI) Screening & Follow-up: BMI documented ABOVE normal parameters - f/u documented Measure #131: Pain Assessment & Follow-up: Pain positive & plan documented, Follow-up scheduled Measure #431: Unhealthy Alcohol Use Preventative Care & Scrn: Patient not identified as an unhealthy alcohol user Mode of Arrival: Ambulatory - Pain Location Lower Back Non-Pharmacological Interventions: Heat, Ice Pharmacological Interventions: PRN Medication Left Arm Non-Pharmacological Interventions: Heat, Ice Pharmacological Interventions: PRN Medication PQRS Narrative: Smoking Status Former smoker Blood Pressure 102/57 Pain Intensity [Left Arm] 6 Pain Intensity [Lower Back] 7 Scale Used Numeric (1 - 10) Hx Alcohol Use (MH) Yes Home Medications: Ambulatory Orders Aspirin EC [Ecotrin Low Dose] 162 mg PO DAILY 12/18/17 Atorvastatin [Lipitor] 20 mg PO MOWEFR 12/18/17 Omeprazole 20 mg PO DAILY 12/18/17 Tamsulosin [Flomax] 0.4 mg PO DAILY 12/18/17 atenoloL [Tenormin] 25 mg PO QAM 12/18/17 Celecoxib [CeleBREX] 200 mg PO DAILY 01/21/21
== END ==
LOC: PNWHC3 08:42
PROVIDERS: ATTEND Specialist
DX: M48.02 Spinal stenosis, cervical region (principal); M50.30 Other cervical disc degeneration, unspecified cervical region; M47.812 Spondylosis without myelopathy or radiculopathy, cervical region; K21.9 Gastro-esophageal reflux disease without esophagitis; E78.5 Hyperlipidemia, unspecified; M19.90 Unspecified osteoarthritis, unspecified site; Z87.891 Personal history of nicotine dependence; Z86.73 Personal history of transient ischemic attack (TIA), and cerebral infarction without residual deficits; Z79.82 Long term (current) use of aspirin; Z79.899 Other long term (current) drug therapy
CPT/HCPCS: 99211

== ENCOUNTER 2021-02-15 11:42 | Day surgery (SDC) | payer MEDICARE ==
[2021-02-15 12:02] VITALS: TEMP 97
[2021-02-15] MEDS ORDERED: LIDOCAINE 1% (10MG/ML) FOR IV START INTRADERMA ONE (12:04)
--- NOTE | 2021-02-15 12:49 | P.PCN ---
Date of Procedure: 02/15/21 Surgeon: Argelia Michelle Pathology: none sent Condition: stable Disposition: PACU Description of Procedure: PROCEDURE 1. Cervical epidural steroid injection under fluoroscopic guidance, C7-T1 left paramedian approach. 2. Cervical epidurogram. : PREOPERATIVE DIAGNOSIS: Cervical radiculopathy, cervical spondylosis without myelopathy POSTOPERATIVE DIAGNOSIS: : Same as above ANESTHESIA: Local anesthesia with 1% lidocaine and IV moderate conscious sedation with Versed and Fentanyl . EBL 0 PROCEDURE INDICATION: The patient with neck pain and radiculopathy unresponsive to conservative treatment consents for procedure. PROCEDURE DESCRIPTION / TECHNIQUE: The patient was seen and identified in the preoperative area. Risks, benefits, complications, including but not limited to infections ,bleeding , allergic reactions to the medications ,and not complete pain relief, and alternatives were discussed with the patient, the patient agreed to proceed with the procedure and signed the consent. Patient was taken to the OR and time out was completed. The patient was placed in the prone position on the procedure table. A pillow was placed under the patients chest to increase the flexion of the cervical spine . The cervical area was prepped and draped in the usual sterile fashion. Vital signs were closely monitored during the procedure. Conscious sedation was used during the procedure to decrease patients anxiety. Using anterior-posterior fluoroscopy, the C7-T1 interlaminar space was identified and the skin over this site was marked and then infiltrated with 1% lidocaine subcutaneously. Subsequently, a 20-gauge 3-1/2-inch Tuohy epidural needle was inserted and advanced toward the epidural space by means of loss of resistance to air technique and guided by AP and lateral fluoroscopy. The needle tip contacted the lamina of T1 vertebra first, then it was walked off bone and into the epidural space using the loss of to air and fluoroscopic guidance to identify the epidural space. The correct needle position in the epidural space was verified with the injection of 1 mL of the water soluble contrast dye Isovue and observing an excellent epidurogram with the epidural spread of the dye, after negative aspiration for blood and CSF and in the absence of paresthesias. Again after negative aspiration, 20 mg of Decadron was injected and a washout of epidurogram was seen. Needle was withdrawn intact, skin was cleansed, and bandages were applied. A copy of the needle placement picture was saved to the fluoroscopy machine.
[2021-02-15] MEDS ORDERED: IV FLUID CONTINUATION 600 ML IV ONE (13:00)
[2021-02-15 13:31] VITALS: BP 124/69; PULSE 56; RESP 16
--- NOTE | 2021-02-15 15:52 | FL ---
EXAMINATION TYPE: FL guided pain mgmt statistic DATE OF EXAM: 02/15/2021 FLUOROSCOPY Fluoroscopy time of 5 seconds was used during cervical epidural injection. 1 image/s document/s the procedure.
== END 2021-02-15 13:33 | disposition home or self-care (01) ==
LOC: ORPAIN 11:42
PROVIDERS: ATTEND Anesthesiology
DX: M47.22 Other spondylosis with radiculopathy, cervical region (principal); F41.9 Anxiety disorder, unspecified
CPT/HCPCS: 62321; 99152

== ENCOUNTER → 2021-03-07 | Outpatient (CLI) | payer MEDICARE ==
[2021-03-07 08:13] VITALS: BP 137/82; PULSE 58; RESP 18
--- NOTE | 2021-03-07 08:23 | P.PN ---
Subjective Progress Note Date: 03/07/21 Jr is a 75 year old male presented to clinic today for a follow-up appointment after a cervical epidural certain injection on 02/15/2021. The epidural injection was focused on C7-T1 left paramedian approach. Since his procedure his report greater than 50% relief of his pain. However he still feeling numbness in his left hand on his first second and third digit. He describes his pain as a numbness tingling sensation with some weakness and loss of sensation in his hand. He reports his pain is worse with certain positions and bending. It is better with other positions, massage therapy, and interventions. He rates his pain as a 4 out of 10 on a 0-to-10 scale. He is currently taking Celebrex 200 mg from his primary care provider. He denies any adverse effects or consultations from those medications. Objective - Exam Physical Examinations : -Constitutiona : Cooperative , not in acute distress . -HEENT : nech : supple , no Lymphadenopathy , normal thyroid size . : eyes : no ptosis , no icterus, no photophobia . - neurologic : Cranial nerve II to XII intact , no focal neurological deffecit . -psychatric : alert , oriented X 3 , appropriate affect , intact judgment and insight . -Lymphatic : no Lymphadenopathy . - musculoskeltal : Cervical Spine motor stregnth in the deltoid and biceps, normal right side , left side 4/5 motor stregnth biceps and the wrist extensors normal right side , 4/5 left side . motor stregnth in the triceps muscle . normal Right side , normal Left side deep tendon reflexes normal at the biceps , normal at Brachioradialis , normal at triceps. cervical facet loading test: Positive Bilaterally Spurling test= positive Right , positive left. Neck distraction test= positive Right , positive left. Lisa sign= negative Assessment and Plan Assessment: Assessment and plan Assessment: 1-cervical spinal stenosis. 2-cervical degenerative disc disease. 3-cervical spondylosis with cervical facet arthropathy without myelopathy. Pain: Patient could benefit from repeat cervical epidural steroid injection at C7- T1 - PQRS measures = - Patient's medications are documented in the chart. -Tobacco use is negative -Patient's has not received pneumococcal vaccine. -Advanced care planning discussed, patient not eligible. -Opiate contract not signed. -Pain positive and follow-up visit/procedure is scheduled. -Patient's blood pressure measured 137/82, and documented in the record ,and patient will follow up with the primary care. -Patient was not identified as an unhealthy alcohol user Time with Patient: Less than 30
== END ==
LOC: PNWHC3 07:46
PROVIDERS: ATTEND Student in an Organized Health Care Education/Training Program
DX: M48.02 Spinal stenosis, cervical region (principal); M50.30 Other cervical disc degeneration, unspecified cervical region; M47.812 Spondylosis without myelopathy or radiculopathy, cervical region; Z87.891 Personal history of nicotine dependence
CPT/HCPCS: 99211

== ENCOUNTER 2021-04-14 08:30 | Day surgery (SDC) | payer MEDICARE ==
[2021-04-13 09:11] VITALS: BMI 26.4
[2021-04-14 09:11] VITALS: RESP 16; TEMP 97.3
[2021-04-14] MEDS ORDERED: LACTATED RINGERS 1,000 ML IV ONE ×2 (09:20)
[2021-04-14] MEDS ORDERED: IOPAMIDOL M200 10 ML VIAL ONE (09:35)
[2021-04-14] MEDS ORDERED: DEXAMETHASONE SOD PHOSPHATE 10 MG/ML 1 ML VIAL ONE (09:35)
[2021-04-14] MEDS ORDERED: MIDAZOLAM 2 MG/2 ML VIAL ONE (09:35)
--- NOTE | 2021-04-14 09:51 | P.PCN ---
Date of Procedure: 04/14/21 Procedure(s) Performed: . PROCEDURE 1. Cervical epidural steroid injection under fluoroscopic guidance, C7-T1 (fluoroscopy images available in the radiology department ) 2. Cervical epidurogram. 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 EBL 0 PROCEDURE INDICATION: The patient with neck pain and radiculitis unresponsive to conservative treatment consents for procedure. PROCEDURE DESCRIPTION / TECHNIQUE: The patient was seen and identified in the preoperative area. Risks, benefits, complications, including but not limited to infections ,bleeding , allergic reactions to the medications ,and not complete pain releife, and alternatives were discussed with the patient, the patient agreed to proceed with the procedure and signed the consent. Patient was taken to the OR and time out was completed. The patient was placed in the prone position on the procedure table. A pillow was placed under the patients chest to increase the cervical interlaminar space. The cervical area was prepped and draped in the usual sterile fashion. Vital signs were closely monitored during the procedure. Conscious sedation was used during the procedure to decrease patients anxiety. Using anterior-posterior fluoroscopy, the C7-T1 interlaminar space was identified and the skin over this site was marked and then infiltrated with 1% lidocaine subcutaneously. Subsequently, a 20-gauge 3-1/2-inch Tuohy epidural needle was inserted and advanced toward the epidural space by means of the ``hanging-drop technique and guided by AP and lateral fluoroscopy. The correct needle position in the epidural space was verified with the injection of 2 mL of the water soluble contrast dye Isovue-200 and observing an excellent epidurogram with the epidural spread of the dye, after negative aspiration for blood and CSF and in the absence of paresthesias. then, mixture containing 15 mg Dexamethasone and 2 ml of preservative-free normal saline injected and a washout of epidurogram was seen. Needle was withdrawn intact, skin was cleansed, and bandages were applied. Complications= none. Disposition= patient was placed in supine position and transferred to the recovery room area in stable condition and there was no evidence of upper or lower extremity motor or sensory deficit after the procedure patient was dis charged from recovery room after discharge criteria met and home discharge instructions was given by the staff and patient will follow with the pain clinic in 2-4 weeks
[2021-04-14] MEDS ORDERED: IV FLUID CONTINUATION 1,000 ML IV ONE (09:53)
[2021-04-14 10:10] VITALS: BP 141/86; PULSE 61
[2021-04-14] MEDS ORDERED: LACTATED RINGERS 1,000 ML IV SCH (10:12)
--- NOTE | 2021-04-14 14:08 | FL ---
EXAMINATION TYPE: FL guided pain mgmt statistic DATE OF EXAM: 04/14/2021 FLUOROSCOPY Fluoroscopy time of 3 seconds was used during cervical epidural injection. 1 image/s document/s the procedure.
== END 2021-04-14 10:22 | disposition home or self-care (01) ==
LOC: ORPAIN 08:30
PROVIDERS: ATTEND Specialist
DX: M50.10 Cervical disc disorder with radiculopathy, unspecified cervical region (principal); M47.22 Other spondylosis with radiculopathy, cervical region; M48.02 Spinal stenosis, cervical region; Z79.82 Long term (current) use of aspirin
CPT/HCPCS: 62321; J2250; J1100; Q9966

== ENCOUNTER → 2021-05-02 | Outpatient (CLI) | payer MEDICARE ==
[2021-05-02 09:53] VITALS: BP 144/85; PULSE 60; RESP 18; TEMP 97.9
--- NOTE | 2021-05-02 17:35 | P.PN ---
Subjective Progress Note Date: 05/02/21 Principal diagnosis: This is follow-up visit for this patient, a 75 yr old male with a history of severe and chronic cervical pain secondary to cervical spinal stenosis, cervical retrolisthesis and multilevel neuroforaminal stenoses. Pain is dull & achy midline in the cervical spine and sharp, shooting in the lower half of the cervical spine towards his left shoulder. Pain intensity is 2-3/ 10. Pain is provoked by movement. Pain is alleviated with medications, rest, heat, injections. Interventional pain procedures completed include two LEONARDO with a 50% reduction in pain with the 2nd procedure completed 04/14/2021. MRI of the cervical spine reviewed and showed C4-C5 & C5-C6 spinal stenosis, C5-C6 retrolisthesis and neuroforaminal stenoses in C3-C4, C4-C5, C5-C6. Pt is contemplating having a 3rd LEONARDO vs a cervical RFA. Pt wants to research the procedures first over the next 2 weeks and get back with the clinic on which procedure to go forward with. Pt think he had a RFA with Dr Wells approximately 2 years ago which gave him immense pain relief, but he is unsure. Patient is currently on Patient denies any side effects of the medication(s), denies excessive drowsiness or sleepiness, denies suicidal ideation and reports that the current pain medication is helping to control the pain and improve activities of daily living. Patient denies any motor or sensory deficits. Patient denies any fever or night sweats, denies any change in the bowel movements or urination. Physical Examination: -Constitutional: Cooperative. Not in acute distress . -HEENT: Neck is supple. No lymphadenopathy. No thyromegaly. Normal thyroid size. Eyes: No ptosis , no icterus, no photophobia. ENT: No auditory deficits. Normal oropharynx. No Thrush. - Respiratory: Chest clear to auscultations bilaterally. No wheezing. No rhonchi. - Cardiovascular: Regular rate and rhythm. S1 / S2 , no S3 , no S4. - Gastrointestinal: Abdomen soft no tenderness. Bowel sounds positive in all four quadrants. No organomegaly. - Genitourinary: Deferred. - Neurologic: Cranial nerve II to XII intact. No focal neurological deficits. - Psychatric: Alert & oriented x 3. Matching mood & appropriate affect. Judgment and insight intact. - Lymphatic: No Lymphadenopathy. - Musculoskeltal: Cervical spine: Muscle bulk/ tone/ strength age appropriate in the bilateral upper extremities. Facet loading test positive Distraction test positive. Lumbar spine: Motor bulk/ tone/ strength lower extremities , thigh and legs : 5/5 Deep tendon reflexes : Normal Knee Jerk. Normal Ankle Jerk . Lumbar Facet Loading Test positive Straight Leg Raise: positive at 30 degree right side/ left side Aureliano test: positive right side / left side Range of motion: Range of motion in flexion of the lumbar spine <60 degrees Range of motion: Extension of the lumbar spine <20 degrees Severe tenderness over the Sacroiliac joint: right side / left side Assessment and plan: Chronic severe cervical pain secondary to cervical spinal stenosis, cervical retrolisthesis and multilevel neuroforaminal stenoses Patient wants to research whether he has already had a RFA approximately 2 years ago as it had provided him great relief and decide whether he should go forward with a cervical RFA vs a 3rd LEONARDO Chronic and current use of high-risk medication (Opioids). The patient was counseled about risk of opioid use, psychological risk associated with opioids and was orally counseled to not overuse , divert or sell medications. Pt is to store medication in a safe location. The patient is counseled against driving while using narcotic medications and also not to use alcohol or any illicit recreational drugs. Patient verbalized understanding that the lack of compliance will result in failure to renew narcotic prescription(s) as well as possible discharge from the clinic Diagnoses, prognosis and treatment options including but not limited to physical therapy, surgical interventions, interventional therapies and medication management including narcotics and adjuvant medication were discussed. All patient questions answered MAPS reviewed and it was apropriate. I have spent 31 minutes on patient care today. The time was used to review the medical records including relevant urine studies and Prescription history (MAPs), review of the available imaging, evaluation and examination of the patient, coordination of care with the medical staff and if applicable referring physicians, as well as creation of the medical record Objective - Vital Signs Vital signs: Vital Signs Temp 97.9 F 05/02/21 09:46 Pulse 60 05/02/21 09:46 Resp 18 05/02/21 09:46 BP 144/85 05/02/21 09:46 Pulse Ox PQRS Measure Charge Sheet Mode of Arrival: Ambulatory - Pain Location Left Hand Non-Pharmacological Interventions: Home Exercise, Position/Reposition PQRS Narrative: Smoking Status Former smoker Blood Pressure 144/85 Pain Intensity [Left Hand] 3 Scale Used Numeric (1 - 10) Hx Alcohol Use () Yes: less than 14 drinks per wk Home Medications: Ambulatory Orders Aspirin EC [Ecotrin Low Dose] 162 mg PO QAM 12/18/17 Atorvastatin [Lipitor] 20 mg PO MOWEFR 12/18/17 Tamsulosin [Flomax] 0.4 mg PO 12/18/17 atenoloL [Tenormin] 25 mg [facility] 12/18/17 Celecoxib [CeleBREX] 200 mg PO QAM 01/21/21 Nyquil Liquid 1 dose PO 03/03/21 Omeprazole 20 mg PO [facility] 04/13/21
== END ==
LOC: PNWHC3 08:16
PROVIDERS: ATTEND Physician Assistant Medical
DX: M48.02 Spinal stenosis, cervical region (principal); M43.12 Spondylolisthesis, cervical region; G89.29 Other chronic pain; Z79.891 Long term (current) use of opiate analgesic; Z87.891 Personal history of nicotine dependence
CPT/HCPCS: 99211

== ENCOUNTER → 2021-06-16 | Day surgery (SDC) | payer MEDICARE ==
[2021-06-15 09:49] VITALS: BMI 26.6
[~2021-06-16] MED LIST changes: +LIDOCAINE 1% (10MG/ML) FOR IV START INTRADERMA ONE
[2021-06-16 10:34] VITALS: BP 144/91; PULSE 64; RESP 16; TEMP 97.4
--- NOTE | 2021-06-16 10:50 | P.PN ---
Subjective Progress Note Date: 06/16/21 This is 76 years old male, history of chronic severe neck pain is diagnosed with cervical radiculopathy, cervical foraminal stenosis, cervical degenerative disc disease, local spondylosis with cervical facet arthropathy, previously we have done cervical epidural steroid injections 2, and patient continued to have severe neck pain with radiation to the left upper extremity associated with some numbness and tingling sensation in his left forearm and hand and left fingers, patient is scheduled to have diagnostic medial branch block cervical area, but he reported that he had minimal neck pain and his main issue is severe pain in his left upper extremity that radiates from the neck, Objective - Vital Signs Vital signs: Vital Signs Temp 97.4 F L 06/16/21 10:30 Pulse 64 06/16/21 10:30 Resp 16 06/16/21 10:30 BP 144/91 06/16/21 10:30 Pulse Ox 99 06/16/21 10:30 Intake & Output 06/15/21 06/16/21 06/16/21 18:59 06:59 18:59 Weight 79.379 kg 81.7 kg - Exam Physical Examinations : -Constitutiona : Cooperative , not in acute distress . -HEENT : nech : supple , no Lymphadenopathy , normal thyroid size . : eyes : no ptosis , no icterus, no photophobia . - neurologic : Cranial nerve II to XII intact , no focal neurological deffecit . -psychatric : alert , oriented X 3 , appropriate affect , intact judgment and insight . -Lymphatic : no Lymphadenopathy . - musculoskeltal : Cervical Spine motor stregnth in the deltoid and biceps, normal right side , normal Left side motor stregnth biceps and the wrist extensors normal right side ,normal left side . motor stregnth in the triceps muscle . normal Right side , normal Left side deep tendon reflexes normal at the biceps , normal at Brachioradialis , normal at triceps. cervical facet loading test: Positive Bilaterally Spurling test= positive Right , positive left. Neck distraction test= positive Right , positive left. Lisa sign= positive right, positive left . Lumber spine moter stegnth lower extremities ,thigh and legs 5/5 Right side , 5/5 Left side deep tendon reflexes : normal Knee Jerk , normal ankle Jerk lumber facet Loading Test =positive Right , positive Left Range of motion of the lumbar spine Fl exion 30 degrees, extension 10 degrees strait leg raising test = negative bilaterally Fabere test= positive Right , and positive LT . Results Comments: MRI of the cervical spine= multilevel cervical degenerative disc disease multilevel cervical spinal stenosis multilevel cervical foraminal stenosis, multilevel cervical facet arthropathy Assessment and Plan Plan: Assessment and plan= 1-cervical spinal stenosis. 2-cervical degenerative disc disease. 3-cervical spondylosis with cervical facet arthropathy without myelopathy. 4-cervical radiculopathy Patient could benefit from cervical epidural steroid injection.at C6-7, left paramedian approach (This patient mostly radicular symptoms to the left upper extremity with numbness and tingling sensation) If patient had no improvement after the third cervical epidural steroid injection,then we will refer him to spine surgeon for evaluation Time with Patient: Less than 30
== END ==
LOC: ORPAIN 09:55
PROVIDERS: ATTEND Specialist
DX: M48.02 Spinal stenosis, cervical region (principal); Z53.9 Procedure and treatment not carried out, unspecified reason; M50.10 Cervical disc disorder with radiculopathy, unspecified cervical region; M47.22 Other spondylosis with radiculopathy, cervical region